=== PATIENT | male | born 1930 | race Caucasian/White ===

== ENCOUNTER 2017-03-31 20:51 | Emergency (ER) | payer MEDICARE, OTHER ==
[2017-03-31] MEDS ORDERED: Oxymetazoline 0.05% Nasal Spray 15 ML Bottle NAS ONE (21:44)
--- NOTE | 2017-03-31 22:45 | EDM.PDOC ---
ED HPI GENERAL MEDICAL PROBLEM - General Chief Complaint: ENT Problem Stated Complaint: [facility] Time Seen by Provider: 03/31/17 21:44 Source of Information: Reports: Patient, EMS, Family History Limitations: Reports: No Limitations - History of Present Illness INITIAL COMMENTS - FREE TEXT/NARRATIVE: This patient comes in by EMS due to a nosebleed. It's been going on for a couple of hours he just can't seem to stop it. He does take warfarin and his INR yesterday was 3.6 and the lady with him is not sure if the dose is been adjusted or not. He also takes aspirin. denies pain Pain Score (Numeric/FACES): 0 - Related Data Allergies Allergy/AdvReac Type Severity Reaction Status Date / Time flunisolide Allergy Cannot Verified 03/31/17 21:04 Remember lisinopril Allergy Cannot Verified 03/31/17 21:04 Remember losartan Allergy Cannot Verified 03/31/17 21:04 Remember pioglitazone Allergy Cannot Verified 03/31/17 21:04 Remember tamsulosin HCl [From Flomax] Allergy Hypotension Verified 12/06/13 10:09 valsartan Allergy Cannot Verified 03/31/17 21:04 Remember Home Meds: Home Meds Albuterol Sulfate [Proair Hfa] 2 puff INH Q4H PRN 10/14/13 [History] Bumetanide [Bumex] 2 mg PO BID 10/14/13 [History] Clotrimazole/Betamethasone Dip [Lotrisone Cream] 1 applic TOP BID 10/14/13 [ History] Docusate Sodium/Sennosides [Senokot-S] 1 each PO DAILY 10/14/13 [History] Finasteride [Proscar] 5 mg PO DAILY 10/14/13 [History] Insulin Aspart [Novolog Flexpen] 12 unit SQ QAM 10/14/13 [History] Insulin Glarg,Human.Rec.Analog [Lantus] 36 units SQ BEDTIME 10/14/13 [History] Levothyroxine Sodium [Synthroid] 150 mcg PO DAILY 10/14/13 [History] Metoprolol Tartrate 50 mg PO BID 10/14/13 [History] Nitroglycerin [Nitrostat] 0.4 mg SL ASDIRECTED PRN 10/14/13 [History] Silver Sulfadiazine [Silvadene 1% Cream] 1 applic TOP DAILY 10/14/13 [History] Simvastatin [Zocor] 20 mg PO BEDTIME 10/14/13 [History] Triamcinolone Acetonide [Triamcinolone Acetonide 0.025%] 1 applic TOP ASDIRECTED PRN 10/14/13 [History] Warfarin [Coumadin] 5 mg PO DAILY 10/14/13 [History] Aspirin [Adult Low Dose Aspirin EC] 81 mg PO DAILY 12/06/13 [History] Pentoxifylline [TRENtal] 400 mg PO TID 12/06/13 [History] Insulin Aspart [NovoLOG] 16 unit SQ CALDER[place] 03/30/14 [History] Insulin Aspart [NovoLOG] 32 unit SQ QPM 03/30/14 [History] Acetaminophen 650 mg PO Q4H PRN 03/31/14 [History] Acetaminophen/Diphenhydramine [Acetaminophen Pm Gelcap] 1 tab PO BEDTIME PRN 05/04 [History] Cholecalciferol (Vitamin D3) [Vitamin D3] 2,000 unit PO DAILY 03/31/14 [History] Fluticasone Propionate [Flovent] 1 spray ABHISHEK DAILY 03/31/14 [History] Loratadine [Allergy] 10 mg PO DAILY 03/31/14 [History] Potassium Chloride [Klor-Con M20] 20 meq PO DAILY 03/31/14 [History] guaiFENesin [Guaifenesin] 400 mg PO Q4H PRN 03/31/14 [History] ALPRAZolam [Xanax] 0.25 mg PO DAILY PRN 02/26/15 [History] Allopurinol [Zyloprim] 100 mg PO DAILY 02/26/15 [History] Ascorbic Acid 02/26/15 [History] Capsaicin 02/26/15 [History] Clotrimazole/Betamethasone 02/26/15 [History] Colchicine 02/26/15 [History] Diphenhydramine 02/26/15 [History] Ketoconazole 02/26/15 [History] Magnesium Hydroxide 02/26/15 [History] Mupirocin Cream [Bactroban Crm] 1 applic TOP BID PRN 02/26/15 [History] Perdnisone 02/26/15 [History] Psyllium 02/26/15 [History] Saw [place] Fruit [Saw [place]] 450 mg PO BID 02/26/15 [History] Cephalexin [Cephalexin] 500 mg PO Q12H 03/31/17 [History] Metoprolol Tartrate [Lopressor] 12.5 mg PO Q12HR 03/31/17 [History] Past Medical History HEENT History: Reports: Impaired Vision Cardiovascular History: Reports: High Cholesterol, Hypertension, [place], Pacemaker Respiratory History: Reports: SOB Gastrointestinal History: Reports: Chronic Constipation Genitourinary History: Reports: Urinary Incontinence Musculoskeletal History: Reports: Arthritis Neurological History: Reports: Neuropathy, Diabetic Endocrine/Metabolic History: Reports: Diabetes, Type II Dermatologic History: Reports: Other (See Below) Other Dermatologic History: dry, fragile skin - Infectious Disease History Infectious Disease History: Reports: Chicken Pox, Measles, Mumps, Rubella - Past Surgical History HEENT Surgical History: Reports: Cataract Surgery, Laser Surgery Cardiovascular Surgical History: Reports: Coronary Artery Stent Social & Family History - Tobacco Use Smoking Status *Q: Never Smoker Second Hand Smoke Exposure: No - Caffeine Use Caffeine Use: Reports: Soda - Alcohol Use Days Per Week of Alcohol Use: 0 - Recreational Drug Use Recreational Drug Use: No ED ROS ENT - Review of Systems Review Of Systems: ROS reveals no pertinent complaints other than HPI. ED EXAM, ENT - Physical Exam Exam: See Below Exam Limited By: No Limitations General Appearance: Alert, WD/WN, No Apparent Distress, Other Eye Exam: Bilateral Eye: Normal Inspection Nose: Other (He has a nose clip on and a piece of gauze in the left nostril. The gauze was removed there is a large clot with it and I observed the left side of the septum and there some anterior irritation anteriorly.) Mouth/Throat: Normal Inspection Respiratory/Chest: Lungs Clear Cardiovascular: Regular Rate, Rhythm Course - Vital Signs Last Recorded V/S: Last Vital Signs Temp 36.6 C 03/31/17 20:54 Pulse 70 03/31/17 20:54 Resp 16 03/31/17 20:54 BP 131/49 L 03/31/17 20:54 Pulse Ox 97 03/31/17 20:54 - Orders/Labs/Meds Meds: Medications Discontinued Medications Generic Name Dose Route Start Last Admin Trade Name Freq PRN Reason Stop Dose Admin Oxymetazoline HCl 1 ml 03/31/17 21:44 Afrin Original 0.05% Nasal Peculiar ABHISHEK 03/31/17 21:45 ONETIME ONE - Re-Assessments/Exams Free Text/Narrative Re-Assessment/Exam: 03/31/17 22:43 [place] gauze was removed from the left nostril along with a big clot. He was given 2 sprays of Afrin to the area of the left nasal septum. The nasal clip was replaced. I examined him afterwards remove the clip and there is no further bleeding. Departure - Departure Time of Disposition: 22:43 Disposition: Home, Self-Care 01 Condition: Fair Clinical Impression: Epistaxis - Discharge Information Referrals: John Selby MD [Primary Care Provider] - Additional Instructions: If there is more bleeding then reapply the nose clip for 15 minutes. You can use the Afrin spray again if needed but shouldn't use it more than about once or twice. You can get addicted to the stuff. It would be best not to use the fluticasone spray for a few days since that can irritate the nose. Tried putting either some Vaseline or some antibiotic ointment and the left nostril to keep it nice and moist.
== END 2017-03-31 22:58 | disposition home or self-care (01) ==
LOC: JP.ED 20:51
DX: R04.0 Epistaxis (principal); E11.40 Type 2 diabetes mellitus with diabetic neuropathy, unspecified; E78.00 Pure hypercholesterolemia, unspecified; I10 Essential (primary) hypertension; I25.2 Old myocardial infarction; Z95.0 Presence of cardiac pacemaker; Z79.4 Long term (current) use of insulin; Z79.82 Long term (current) use of aspirin; Z79.899 Other long term (current) drug therapy; Z88.8 Allergy status to other drugs, medicaments and biological substances
CPT/HCPCS: 99284; A9270; 99282

== ENCOUNTER 2017-04-20 17:20 | Emergency (ER) | payer MEDICARE, OTHER ==
--- NOTE | 2017-04-20 18:29 | EDM.PDOC ---
ED HPI GENERAL MEDICAL PROBLEM - General Chief Complaint: ENT Problem Stated Complaint: [facility] Time Seen by Provider: 04/20/17 17:30 Source of Information: Reports: Patient, EMS, Family History Limitations: Reports: No Limitations - History of Present Illness INITIAL COMMENTS - FREE TEXT/NARRATIVE: 86-year-old male with a persistent left epistaxis for the past 2 hours. Onset: Today Duration: Hour(s): (Patient has had epistaxis for the last 2 hours, left-sided) - Related Data Allergies Allergy/AdvReac Type Severity Reaction Status Date / Time flunisolide Allergy Cannot Verified 03/31/17 21:04 Remember lisinopril Allergy Cannot Verified 03/31/17 21:04 Remember losartan Allergy Cannot Verified 03/31/17 21:04 Remember pioglitazone Allergy Cannot Verified 03/31/17 21:04 Remember tamsulosin HCl [From Flomax] Allergy Hypotension Verified 12/06/13 10:09 valsartan Allergy Cannot Verified 03/31/17 21:04 Remember Home Meds: Home Meds Albuterol Sulfate [Proair Hfa] 2 puff INH Q4H PRN 10/14/13 [History] Bumetanide [Bumex] 2 mg PO BID 10/14/13 [History] Clotrimazole/Betamethasone Dip [Lotrisone Cream] 1 applic TOP BID 10/14/13 [ History] Docusate Sodium/Sennosides [Senokot-S] 1 each PO DAILY 10/14/13 [History] Finasteride [Proscar] 5 mg PO DAILY 10/14/13 [History] Insulin Aspart [Novolog Flexpen] 12 unit SQ QAM 10/14/13 [History] Insulin Glarg,Human.Rec.Analog [Lantus] 36 units SQ BEDTIME 10/14/13 [History] Levothyroxine Sodium [Synthroid] 150 mcg PO DAILY 10/14/13 [History] Metoprolol Tartrate 50 mg PO BID 10/14/13 [History] Nitroglycerin [Nitrostat] 0.4 mg SL ASDIRECTED PRN 10/14/13 [History] Silver Sulfadiazine [Silvadene 1% Cream] 1 applic TOP DAILY 10/14/13 [History] Simvastatin [Zocor] 20 mg PO BEDTIME 10/14/13 [History] Triamcinolone Acetonide [Triamcinolone Acetonide 0.025%] 1 applic TOP ASDIRECTED PRN 10/14/13 [History] Warfarin [Coumadin] 5 mg PO DAILY 10/14/13 [History] Aspirin [Adult Low Dose Aspirin EC] 81 mg PO DAILY 12/06/13 [History] Pentoxifylline [TRENtal] 400 mg PO TID 12/06/13 [History] Insulin Aspart [NovoLOG] 16 unit SQ CALDER[place] 03/30/14 [History] Insulin Aspart [NovoLOG] 32 unit SQ QPM 03/30/14 [History] Acetaminophen 650 mg PO Q4H PRN 03/31/14 [History] Acetaminophen/Diphenhydramine [Acetaminophen Pm Gelcap] 1 tab PO BEDTIME PRN 05/04 [History] Cholecalciferol (Vitamin D3) [Vitamin D3] 2,000 unit PO DAILY 03/31/14 [History] Fluticasone Propionate [Flovent] 1 spray ABHISHEK DAILY 03/31/14 [History] Loratadine [Allergy] 10 mg PO DAILY 03/31/14 [History] Potassium Chloride [Klor-Con M20] 20 meq PO DAILY 03/31/14 [History] guaiFENesin [Guaifenesin] 400 mg PO Q4H PRN 03/31/14 [History] ALPRAZolam [Xanax] 0.25 mg PO DAILY PRN 02/26/15 [History] Allopurinol [Zyloprim] 100 mg PO DAILY 02/26/15 [History] Ascorbic Acid 02/26/15 [History] Capsaicin 02/26/15 [History] Clotrimazole/Betamethasone 02/26/15 [History] Colchicine 02/26/15 [History] Diphenhydramine 02/26/15 [History] Ketoconazole 02/26/15 [History] Magnesium Hydroxide 02/26/15 [History] Mupirocin Cream [Bactroban Crm] 1 applic TOP BID PRN 02/26/15 [History] Psyllium 02/26/15 [History] Saw [place] Fruit [Saw [place]] 450 mg PO BID 02/26/15 [History] Cephalexin [Cephalexin] 500 mg PO Q12H 03/31/17 [History] Metoprolol Tartrate [Lopressor] 12.5 mg PO Q12HR 10/11/17 [History] Past Medical History HEENT History: Reports: Impaired Vision Cardiovascular History: Reports: High Cholesterol, Hypertension, [place], Pacemaker Respiratory History: Reports: SOB Gastrointestinal History: Reports: Chronic Constipation Genitourinary History: Reports: Urinary Incontinence Musculoskeletal History: Reports: Arthritis Neurological History: Reports: Neuropathy, Diabetic Endocrine/Metabolic History: Reports: Diabetes, Type II Dermatologic History: Reports: Other (See Below) Other Dermatologic History: dry, fragile skin - Infectious Disease History Infectious Disease History: Reports: Chicken Pox, Measles, Mumps, Rubella - Past Surgical History HEENT Surgical History: Reports: Cataract Surgery, Laser Surgery Cardiovascular Surgical History: Reports: Coronary Artery Stent Social & Family History - Tobacco Use Smoking Status *Q: Never Smoker Second Hand Smoke Exposure: No - Caffeine Use Caffeine Use: Reports: None - Alcohol Use Days Per Week of Alcohol Use: 0 - Recreational Drug Use Recreational Drug Use: No ED ROS ENT - Review of Systems Review Of Systems: See Below Constitutional: Denies: Fever, Chills Respiratory: Denies: Shortness of Breath GI/Abdominal: Denies: Vomiting Skin: Reports: Pallor Neurological: Denies: Headache ED EXAM, ENT - Physical Exam Exam: See Below Exam Limited By: No Limitations General Appearance: Alert, No Apparent Distress Nose: Other (Persistent left-sided epistaxis is present) Mouth/Throat: Other (A small amount of posterior pharyngeal blood is present, actively bleeding) Respiratory/Chest: No Respiratory Distress Course - Vital Signs Last Recorded V/S: Last Vital Signs Temp 96.8 F 04/20/17 17:26 Pulse 70 04/20/17 17:26 Resp 14 04/20/17 17:26 BP 154/41 H 04/20/17 17:26 Pulse Ox 96 04/20/17 17:26 - Re-Assessments/Exams Free Text/Narrative Re-Assessment/Exam: 04/21/17 12:04 All blood and clots were expelled from the left nares. A 5.5 cm rapid Rhino was placed without difficulty. Patient tolerated the procedure well, will return in 48 hours for removal or return sooner if worsening or concerns. Departure - Departure Time of Disposition: 18:45 Disposition: Home, Self-Care 01 Condition: Good Clinical Impression: Epistaxis - Discharge Information Instructions: Nosebleed, [id number] Referrals: PCP,None [Primary Care Provider] - Forms: ED Department Discharge Care Plan Goals: Remove packing in 2 days. Return sooner if problems develop.
== END 2017-04-20 18:45 | disposition home or self-care (01) ==
LOC: JP.ED 17:20
DX: R04.0 Epistaxis (principal); E11.42 Type 2 diabetes mellitus with diabetic polyneuropathy; I10 Essential (primary) hypertension; E78.00 Pure hypercholesterolemia, unspecified; Z79.4 Long term (current) use of insulin; Z79.82 Long term (current) use of aspirin; Z79.01 Long term (current) use of anticoagulants; Z79.899 Other long term (current) drug therapy; Z88.8 Allergy status to other drugs, medicaments and biological substances
CPT/HCPCS: 30901; 30903; 99283-25; 99284-25

== ENCOUNTER 2017-04-29 12:43 | Inpatient (IN) | payer MEDICARE, OTHER ==
[2017-04-29] MEDS ORDERED: Acetaminophen 325 MG Tab PO PRN (14:18)
[2017-04-29] MEDS ORDERED: ALPRAZolam 0.25 MG Tab PO PRN (14:18)
[2017-04-29] MEDS ORDERED: Sodium Chloride 0.9% 10 ML Syringe FLUSH PRN (14:21)
[2017-04-29] MEDS ORDERED: Albuterol 0.083% 2.5 MG/3 ML Neb Soln NEB PRN (14:21)
[2017-04-29] MEDS ORDERED: Ondansetron 4 MG Tab.DIS PO PRN (14:21)
--- NOTE | 2017-04-29 14:35 | PCM.HP ---
H&P History of Present Illness - General Date of Service: 04/29/17 Admit Problem/Dx: Admission Diagnosis/Problem Admission Diagnosis/Problem Anemia Source of Information: Patient, Family, Provider History Limitations: Reports: No Limitations - History of Present Illness Initial Comments - Free Text/Narative: Donnie presents as a direct admission from the nephrology clinic where he presented for routine follow-up. His biggest concern today is that he can't catch his wind. He reports 3-4 weeks of slowly progressive shortness of breath and dyspnea on exertion. They have been more notable especially over the past week. No reports of cough or chest pain. He is become slowly more fatigued than usual. Appetite has been stable. No reports of orthopnea. Lower extremity edema has been stable. No reports of fevers. He has not noticed any blood in his stool and has not had any melena. No hematemesis or obvious source of blood loss. No easy bruising or bleeding. Workup in the nephrology clinic revealed a hemoglobin of 7.2 which is down from nearly 11 six months ago. - Related Data Allergies/Adverse Reactions: Allergies Allergy/AdvReac Type Severity Reaction Status Date / Time flunisolide Allergy Cannot Verified 03/31/17 21:04 Remember lisinopril Allergy Cannot Verified 03/31/17 21:04 Remember losartan Allergy Cannot Verified 03/31/17 21:04 Remember pioglitazone Allergy Cannot Verified 03/31/17 21:04 Remember tamsulosin HCl [From Flomax] Allergy Hypotension Verified 12/06/13 10:09 valsartan Allergy Cannot Verified 03/31/17 21:04 Remember Home Medications: Home Meds Albuterol Sulfate [Proair Hfa] 2 puff INH Q4H PRN 10/14/13 [History] Bumetanide [Bumex] 2 mg PO DAILY 10/14/13 [History] Clotrimazole/Betamethasone Dip [Lotrisone Cream] 1 applic TOP BID 10/14/13 [ History] Finasteride [Proscar] 5 mg PO DAILY 10/14/13 [History] Insulin Aspart [Novolog Flexpen] 12 unit SQ QAM 10/14/13 [History] Insulin Glarg,Human.Rec.Analog [Lantus] 36 units SQ BEDTIME 10/14/13 [History] Levothyroxine Sodium [Synthroid] 150 mcg PO DAILY 10/14/13 [History] Nitroglycerin [Nitrostat] 0.4 mg SL ASDIRECTED PRN 10/14/13 [History] Simvastatin [Zocor] 20 mg PO BEDTIME 10/14/13 [History] Triamcinolone Acetonide [Triamcinolone Acetonide 0.025%] 1 applic TOP ASDIRECTED PRN 10/14/13 [History] Warfarin [Coumadin] 5 mg PO ASDIRECTED 10/14/13 [History] Aspirin [Adult Low Dose Aspirin EC] 81 mg PO DAILY 12/06/13 [History] Insulin Aspart [NovoLOG] 16 unit SQ CALDERON 03/30/14 [History] Insulin Aspart [NovoLOG] 32 unit SQ QPM 03/30/14 [History] Acetaminophen 650 mg PO Q4H PRN 03/31/14 [History] Fluticasone Propionate [Flovent] 1 puff ABHISHEK DAILY 03/31/14 [History] Loratadine [Allergy] 10 mg PO DAILY 03/31/14 [History] Potassium Chloride [Klor-Con M20] 20 meq PO DAILY 03/31/14 [History] guaiFENesin [Guaifenesin] 400 mg PO Q4H PRN 03/31/14 [History] ALPRAZolam [Xanax] 0.25 mg PO DAILY PRN 02/26/15 [History] Allopurinol [Zyloprim] 100 mg PO DAILY 02/26/15 [History] Ascorbic Acid 500 mg PO DAILY 02/26/15 [History] Mupirocin Cream [Bactroban Crm] 1 applic TOP BID PRN 02/26/15 [History] [place] Fruit [Saw [place]] 450 mg PO BID 02/26/15 [History] Metoprolol Tartrate [Lopressor] 12.5 mg PO BID 03/31/17 [History] Acetaminophen/Diphenhydramine [Tylenol Pm Ex-Strength Caplet] 1 - 2 each PO BEDTIME PRN 04/29/17 [History] Cyanocobalamin (Vitamin B-12) [B-12] 1,000 mcg PO DAILY 04/29/17 [History] Docusate Calcium [Surfak] 240 mg PO DAILY 04/29/17 [History] Fluocinonide [Lidex 0.05% Crm] 1 g TOP BID 04/29/17 [History] Folic Acid 1 mg PO DAILY 04/29/17 [History] Hypromellose [Genteal Severe] 1 drop EYERT DAILY 04/29/17 [History] Ketoconazole [Nizoral 2% Crm] 1 g TOP BID PRN 04/29/17 [History] Lactulose 20 gm PO DAILY 04/29/17 [History] Magnesium Hydroxide [Milk of Magnesia] 30 ml PO DAILY PRN 04/29/17 [History] Triamcinolone Acetonide [Nasacort] 2 sprays NS DAILY 04/29/17 [History] Warfarin [Coumadin] 2.5 mg PO ASDIRECTED 04/29/17 [History] Past Medical History HEENT History: Reports: Impaired Vision Cardiovascular History: Reports: Afib, High Cholesterol, Hypertension, NM, Pacemaker Respiratory History: Reports: SOB Gastrointestinal History: Reports: Chronic Constipation Genitourinary History: Reports: Urinary Incontinence Musculoskeletal History: Reports: Arthritis Neurological History: Reports: Neuropathy, Diabetic Psychiatric History: Reports: None Endocrine/Metabolic History: Reports: Diabetes, Type II, Obesity/BMI 30+ Hematologic History: Reports: Anemia Immunologic History: Reports: None Oncologic (Cancer) History: Reports: None Dermatologic History: Reports: Other (See Below) Other Dermatologic History: dry, fragile skin, SKIN ON BUTTOCKS/ANUPAMA ANAL AREA REDDENED AND EXCORIATED ON ADMISSION - Infectious Disease History Infectious Disease History: Reports: Chicken Pox, Measles, Mumps, Rubella - Past Surgical History HEENT Surgical History: Reports: Cataract Surgery, Laser Surgery Cardiovascular Surgical History: Reports: Coronary Artery Stent, Pacer GI Surgical History: Reports: None Neurological Surgical History: Reports: None Social & Family History - Family History Cardiac: Denies: CAD - Tobacco Use Smoking Status *Q: Former Smoker Used Tobacco, but Quit: Yes Month Tobacco Last Used: Second Hand Smoke Exposure: No - Caffeine Use Caffeine Use: Reports: Coffee - Alcohol Use Days Per Week of Alcohol Use: 0 - Recreational Drug Use Recreational Drug Use: No H&P Review of Systems - Review of Systems: Review Of Systems: See Below Free Text/Narrative: A complete 12 point review of systems was obtained. Pertinent positives and negatives are noted in the history of present illness. All other systems were reviewed and were negative except as noted. Exam - Exam Exam: See Below - Vital Signs Vital Signs: Last Vital Signs Temp 36.3 C 04/29/17 13:37 Pulse 70 04/29/17 13:37 Resp 18 04/29/17 13:37 BP 144/40 H 04/29/17 13:37 Pulse Ox 100 04/29/17 13:37 Weight: 140.358 kg - Exam Quality Assessment: No: Supplemental Oxygen General: Alert, Oriented, Cooperative. No: Mild Distress HEENT: Conjunctiva Clear, Mucosa Moist & [place]. No: Scleral Icterus Neck: Supple, Trachea Midline. No: Lymphadenopathy Lungs: Clear to Auscultation, Normal Respiratory Effort Cardiovascular: Regular Rate, Regular Rhythm, Systolic Murmur GI/Abdominal Exam: Normal Bowel Sounds, Soft, Non-Tender, No Distention Extremities: Pedal Edema (pitting edema to the knee bilaterally, right greater than left). No: Joint Swelling, Increased Warmth Skin: Warm, Dry Neurological: Normal Speech Neuro Extensive - Mental Status: Alert, Oriented x3, Nl Response to Commands Neuro Extensive - Motor, Sensory, Reflexes: CN II-XII Intact. No: Dysarthria, Abnormal Motor, Tremor Psychiatric: Alert, Normal Affect *Q Meaningful Use (ADM) - VTE *Q VTE Criteria *Q: VTE Mechanical Contraindications *Q: Bilateral Lower Edema VTE Pharmacological Contraindications *Q: Risk of Bleeding - VTE Risk Assess *Q Each Risk Factor Represents 1 Point: Swollen Legs, Current, Obesity ( BMI > 25 kg/m2), Congestive heart failure (CHF), Abnormal Pulmonary Function (COPD) Total Score 1 Point Risk Factors: 4 Each Risk Factor Represents 2 Points: None Total Score 2 Point Risk Factors: 0 Each Risk Factor Represents 3 Points: Age 75 Years or Greater Total Score 3 Point Risk Factors: 3 Each Risk Factor Represents 5 Points: None Total Score 5 Point Risk Factors: 0 Venous Thromboembolism Risk Factor Score *Q: 7 - Stroke *Q Stroke Criteria *Q: - AMI *Q AMI Criteria *Q: - Problem List (1) Normocytic anemia SNOMED Code(s): 288564531 ICD Code: D64.9 - ANEMIA, UNSPECIFIED Status: Acute Current Visit: Yes (2) Chronic kidney disease, stage 3 SNOMED Code(s): 492983869 ICD Code: N18.3 - CHRONIC KIDNEY DISEASE, STAGE 3 (MODERATE) Status: Chronic Current Visit: Yes (3) Venous stasis dermatitis of both lower extremities SNOMED Code(s): 69929482 ICD Code: I87.2 - VENOUS INSUFFICIENCY (CHRONIC) (PERIPHERAL) Status: Chronic Current Visit: Yes (4) Hypothyroidism (acquired) SNOMED Code(s): 016866615 ICD Code: E03.9 - HYPOTHYROIDISM, UNSPECIFIED Status: Chronic Current Visit: Yes (5) Morbid obesity with BMI of 40.0-44.9, adult SNOMED Code(s): 283609055 ICD Code: E66.01 - MORBID (SEVERE) OBESITY DUE TO EXCESS CALORIES; Z68.41 - BODY MASS INDEX (BMI) 40.0-44.9, ADULT Status: Chronic Current Visit: No (6) Chronic atrial flutter SNOMED Code(s): 307778055 ICD Code: I48.92 - UNSPECIFIED ATRIAL FLUTTER Status: Chronic Current Visit: Yes (7) Insulin dependent diabetes mellitus SNOMED Code(s): 50160902 ICD Code: E11.9 - TYPE 2 DIABETES MELLITUS WITHOUT COMPLICATIONS; Z79.4 - USP (CURRENT) USE OF INSULIN Status: Chronic Current Visit: Yes Problem List Initiated/Reviewed/Updated: Yes Orders Last 24hrs: Active Orders 24 hr Category Date Time Status Patient Status [ADT] Routine ADT 04/29/17 14:21 Ordered Bedrest Bedside Commode [RC] ASDIRECTED Care 04/29/17 14:21 Ordered Intake and Output [RC] QSHIFT Care 04/29/17 14:24 Ordered Notify Provider Consults [RC] ASDIRECTED Care 04/29/17 14:26 Ordered Notify Provider Vital Signs [RC] ASDIRECTED Care 04/29/17 14:24 Ordered Oxygen Therapy [RC] PRN Care 04/29/17 14:21 Ordered RT Aerosol Therapy [RC] ASDIRECTED Care 04/29/17 14:26 Ordered Up With Assistance [RC] ASDIRECTED Care 04/29/17 14:21 Ordered VTE/DVT Education [RC] Per Unit Routine Care 04/29/17 14:21 Ordered Vital Signs [RC] Q4H Care 04/29/17 14:21 Ordered Consult to Physician [CONS] Routine Cons 04/29/17 14:21 Ordered Clear Liquid Diet [DIET] Diet 04/29/17 Dinner Ordered NPO After Midnight [Nothing per Oral After Midnight Diet 04/29/17 Dinner Ordered Diet] [DIET] BASIC METABOLIC PANEL,BMP [CHEM] AM Lab 04/30/17 05:11 Ordered CBC W/O DIFF,HEMOGRAM [HEME] AM Lab 04/30/17 05:11 Ordered FERRITIN [CHEM] Routine Lab 04/29/17 14:21 Ordered INR,PT,PROTHROMBIN TIME [COAG] AM Lab 04/30/17 05:11 Ordered IRON/TIBC [CHEM] Routine Lab 04/29/17 14:21 Ordered LACTATE DEHYDROGENASE,LDH [CHEM] Routine Lab 04/29/17 14:21 Ordered RED BLOOD CELLS LP [BBK] Routine Lab 04/29/17 14:21 Ordered TYPE AND SCREEN [BBK] Routine Lab 04/29/17 14:21 Ordered VITAMIN B12 [CHEM] Routine Lab 04/29/17 14:29 Ordered ALPRAZolam [Xanax] Med 04/29/17 14:18 Ordered 0.25 mg PO DAILY PRN Acetaminophen [Tylenol] Med 04/29/17 14:18 Ordered 650 mg PO Q4H PRN Albuterol [Proventil Neb Soln] Med 04/29/17 14:21 Ordered 2.5 mg NEB Q4H PRN Allopurinol [Zyloprim] Med 04/30/17 09:00 Ordered 100 mg PO DAILY Aspirin [Halfprin] Med 04/30/17 09:00 Ordered 81 mg PO DAILY Bumetanide [Bumex] Med 04/30/17 09:00 Ordered 2 mg PO DAILY Cyanocobalamin (Vitamin B12) [Vitamin B12] Med 04/30/17 09:00 Ordered 1,000 mcg PO DAILY Finasteride [Proscar] Med 04/30/17 09:00 Ordered 5 mg PO DAILY Folic Acid Med 04/30/17 09:00 Ordered 1 mg PO DAILY Hypromellose [GenTeal Severe Dry Eye Relief] Med 04/30/17 09:00 Ordered 1 drop EYERT DAILY Levothyroxine Sodium [Synthroid] Med 04/30/17 09:00 Ordered 150 mcg PO DAILY Metoprolol Tartrate [Lopressor] Med 04/29/17 21:00 Ordered 12.5 mg PO BID Ondansetron [Zofran ODT] Med 04/29/17 14:21 Ordered 4 mg PO Q6H PRN Polyethylene Glycol 3350 [MiraLAX] Med 04/29/17 14:29 Once 238 gm PO ONETIME ONE Potassium Chloride [Klor-Con M20] Med 04/30/17 09:00 Ordered 20 meq PO DAILY Saw [place] Fruit [Saw [place]] Med 04/29/17 21:00 Ordered 450 mg PO BID Simvastatin [Zocor] Med 04/29/17 21:00 Ordered 20 mg PO BEDTIME Sodium Chloride 0.9% [Saline Flush] Med 04/29/17 14:21 Ordered 10 ml FLUSH ASDIRECTED PRN Triamcinolone Acetonide [Nasacort] Med 04/30/17 09:00 Ordered 2 sprays NS DAILY Antiembolic Hose [OM.PC] Per Unit Routine Oth 04/29/17 14:25 Ordered Saline Lock Insert [OM.PC] Routine Oth 04/29/17 14:21 Ordered Transfuse Red Blood Cells [COMM] Routine Oth 04/29/17 14:27 Ordered Resuscitation Status Routine Resus Stat 04/29/17 14:21 Ordered Assessment/Plan Comment:: ASSESSMENT AND PLAN - Symptomatic normocytic anemia - most likely differential includes chronic blood loss versus underproduction versus less likely destruction. No symptoms or signs to suggest blood loss through the GI tract at this time. No symptoms or signs to suggest acute hematologic issue. Hemoglobin trending down. Patient is interested in additional workup. He is on chronic anticoagulation for warfarin and is at a high risk for stroke given comorbidities. He would benefit from systemic anticoagulation as long as there are no impressive contraindications. -Type and cross 2 units and transfuse when available -Iron studies, ferritin and LDH -Consult Dr. Orlando for EGD and colonoscopy in the morning -repeat hemoglobin in the morning Stage III chronic kidney disease - Kidney function has been stable to improving recently. Possibly some contribution to low hemoglobin though kidney function has been slowly improving. Insulin-dependent diabetes mellitus - Control has been acceptable recently. Usual medications will be reduced with colonoscopy prep plan for tonight. Chronic atrial flutter - chronically anticoagulated as above. Currently rate controlled. -Continue beta aliza -Hold anticoagulation as above Maintenance issues - - DVT prophylaxis - mechanical - GI prophylaxis - PPI - Nutrition - clear liquids tonight - Maria catheter - not indicated CODE STATUS - DNR/DNI Admission justification - This patient will be admitted for inpatient services and is medically appropriate meeting medical necessity for inpatient admission as outlined in my documentation. I reasonably expect the patient will require inpatient services that span a period time over 2 midnights. I reasonably expect this patient to be discharged or transferred within 96 hours after admission to the [facility]. Disposition - anticipate discharge home after the hospital stay Primary care physician - Dr. Bal Altman M.D.
[2017-04-29] MEDS ORDERED: Polyethylene Glycol 3350 Powder 238 GM Bot PO ONE (15:00)
[2017-04-29] MEDS ORDERED: SAW PALMETTO FRUIT 450 MG PO SCH (21:00)
[2017-04-29] MEDS: Insulin Aspart 100 Units/ML 3 ML Pen SUBCUT SCH (21:21)
[2017-04-29] MEDS: Simvastatin 20 MG Tab PO SCH (21:26)
[2017-04-29] MEDS: Metoprolol Tartrate 25 MG Tab PO SCH (21:26)
[2017-04-29] MEDS: SAW PALMETTO (PTOM) PO SCH (21:35)
[2017-04-30] MEDS ORDERED: Bupivacaine 0.5%/EPINEPHrine 1:200,000 50 ML MDV ONE (07:03)
[2017-04-30] MEDS ORDERED: Propofol 200 MG/20 ML SDV ONE ×2 (07:05→08:06)
[2017-04-30] MEDS ORDERED: Insulin Aspart 100 Units/ML 3 ML Pen SUBCUT SCH (08:00)
[2017-04-30] MEDS ORDERED: Lactated Ringers 1,000 ML ONE (08:06)
[2017-04-30] MEDS ORDERED: TRIAMCINOLONE ACETONIDE NS SCH (09:00)
[2017-04-30] MEDS ORDERED: Non-Formulary Medication 1 Each (Bumetanide [Bumex] 2 MG) PO SCH (09:00)
[2017-04-30] MEDS ORDERED: Fluticasone Propionate Nasal Spray 16 GM Bottle NASBOTH SCH (09:00)
[2017-04-30] MEDS ORDERED: Non-Formulary Medication 1 Each (Levothyroxine Sodium [Synthroid] 150 MCG) PO SCH (09:00)
[2017-04-30] MEDS ORDERED: HYPROMELLOSE EYERT SCH (09:00)
--- NOTE | 2017-04-30 09:34 | OR ---
DATE OF PROCEDURE: 04/30/2017 PROCEDURE: 1. Esophagogastroduodenoscopy. 2. Colonoscopy. FINDINGS: 1. Gastritis, moderate. 2. Significant diverticulosis. 3. Inadequate colon prep. 4. No evidence of lower GI bleeding. COMPLICATIONS: None. CLINICAL DATA MANAGER: None. ANESTHESIA: MAC. PREOPERATIVE DIAGNOSIS: Anemia. POSTOPERATIVE DIAGNOSIS: Anemia. RISKS: Risks, benefits, alternatives, limitations including, but not limited to infection, bleeding, and perforation were explained to the patient, who wished to proceed. PROCEDURE IN DETAIL: The patient was placed in the left lateral decubitus position. The EGD scope was introduced, advanced atraumatically to the second part of the duodenum. The scope was brought back into the stomach. The patient had moderate gastritis, which was still active. On retroflexion, there was a small hiatal hernia. No evidence of ulceration noted. The esophagus was normal. Digital rectal exam was performed next. The scope was then advanced to the level of the transverse colon. The patient had severe and significant diverticulosis. There was no evidence of old or new blood. The patient's prep was unacceptable. At the level of the proximal transverse colon, the procedure was terminated. This was terminated due to the risk-benefit ratio, as advancing the scope blindly with a poor colon prep might lead to perforation, there was no blood noted, and diverticulosis probably would be the main GI etiology. The patient tolerated the procedures well. Barrett Orlando MD /[id number]
[2017-04-30] MEDS: Folic Acid 1 MG Tab PO SCH (09:43)
[2017-04-30] MEDS: Potassium Chloride 20 MEQ Tab.ER PO SCH (09:43)
[2017-04-30] MEDS: Bumetanide 1 MG Tab PO SCH (09:43)
[2017-04-30] MEDS: Aspirin 81 MG Tab.EC PO SCH (09:43)
[2017-04-30] MEDS: SAW PALMETTO (PTOM) PO SCH ×2 (09:44→21:50)
[2017-04-30] MEDS: Finasteride 5 MG Tab PO SCH (09:44)
[2017-04-30] MEDS: Allopurinol 100 MG Tab PO SCH (09:44)
[2017-04-30] MEDS: Metoprolol Tartrate 25 MG Tab PO SCH ×2 (09:44→21:48)
[2017-04-30] MEDS: Cyanocobalamin (Vitamin B12) 1,000 MCG Tab PO SCH (09:44)
[2017-04-30] MEDS: Hypromellose 0.4% Ophth Soln 15 ML Bottle EYERT SCH (09:45)
[2017-04-30] MEDS: Fluticasone Propionate Nasal Spray 16 GM Bottle NASBOTH SCH ×2 (09:46→18:21)
[2017-04-30] MEDS: Insulin Aspart 100 Units/ML 3 ML Pen SUBCUT SCH ×5 (09:50→17:52)
--- NOTE | 2017-04-30 11:01 | PCM.PN ---
- General Info Date of Service: 04/30/17 Functional Status: Reports: Pain Controlled, Tolerating Diet - Review of Systems Pulmonary: Denies: Shortness of Breath Gastrointestinal: Denies: Hematochezia Systems Review Comment:: no acute events overnight. Hemoglobin stable compared to yesterday. Unfortunately blood was not available because of an ABO discrepancy. No complaints of dyspnea. Vital signs have been stable. EGD this morning showed mild to moderate gastritis with no bleeding. Colonoscopy prep was not great and colonoscopy was incomplete did reveal a fair amount of diverticulosis. No evidence for new or old blood in the colon. - Patient Data Vitals - Most Recent: Last Vital Signs Temp 36.1 C 04/30/17 09:40 Pulse 70 04/30/17 09:44 Resp 18 04/30/17 09:30 BP 130/38 L 04/30/17 09:44 Pulse Ox 96 04/30/17 09:30 Weight - Most Recent: 140.358 kg I&O - Last 24 Hours: Intake & Output 04/29/17 04/30/17 04/30/17 22:59 06:59 14:59 Intake Total 2400 120 Balance 2400 120 Lab Results Last 24 Hours: Laboratory Results - last 24 hr 04/29/17 04/29/17 04/29/17 Range/Units 14:46 14:46 14:46 WBC (4.5-11.0) K/uL RBC (4.30-5.90) M/uL Hgb (12.0-15.0) g/dL Hct (40.0-54.0) % MCV (80-98) fL MCH (27-31) pg MCHC (32-36) % Plt Count (150-400) K/uL PT (9.5-12.0) sec INR (0.80-1.20) Sodium (140-148) mmol/L Potassium (3.6-5.2) mmol/L Chloride (100-108) mmol/L Carbon Dioxide (21-32) mmol/L Anion Gap (5.0-14.0) mmol/L BUN (7-18) mg/dL Creatinine (0.8-1.3) mg/dL Est Cr Clr Drug Dosing mL/min Estimated GFR (MDRD) (>60) Glucose (74-106) mg/dL Calcium (8.5-10.1) mg/dL Iron 53 L (65-175) ug/dL TIBC 212 L (250-450) ug/dl % Saturation 25 (20-55) % Ferritin 372 (8-388) ng/ml Lactate Dehydrogenase 157 (85-227) U/L Vitamin B12 (193-986) pg/ml Gel Antibody Screen Negative A* Crossmatch See Detail 04/29/17 04/30/17 04/30/17 Range/Units 14:46 05:35 05:35 WBC 5.3 (4.5-11.0) K/uL RBC 2.45 L (4.30-5.90) M/uL Hgb 6.8 L* D (12.0-15.0) g/dL Hct 23.0 L (40.0-54.0) % MCV 94 (80-98) fL MCH 28 (27-31) pg MCHC 30 L (32-36) % Plt Count 119 L (150-400) K/uL PT 23.5 H (9.5-12.0) sec INR 2.13 H (0.80-1.20) Sodium (140-148) mmol/L Potassium (3.6-5.2) mmol/L Chloride (100-108) mmol/L Carbon Dioxide (21-32) mmol/L Anion Gap (5.0-14.0) mmol/L BUN (7-18) mg/dL Creatinine (0.8-1.3) mg/dL Est Cr Clr Drug Dosing mL/min Estimated GFR (MDRD) (>60) Glucose (74-106) mg/dL Calcium (8.5-10.1) mg/dL Iron (65-175) ug/dL TIBC (250-450) ug/dl % Saturation (20-55) % Ferritin (8-388) ng/ml Lactate Dehydrogenase (85-227) U/L Vitamin B12 1321 H (193-986) pg/ml Gel Antibody Screen Crossmatch 04/30/17 Range/Units 05:35 WBC (4.5-11.0) K/uL RBC (4.30-5.90) M/uL Hgb (12.0-15.0) g/dL Hct (40.0-54.0) % MCV (80-98) fL MCH (27-31) pg MCHC (32-36) % Plt Count (150-400) K/uL PT (9.5-12.0) sec INR (0.80-1.20) Sodium 141 (140-148) mmol/L Potassium 4.0 (3.6-5.2) mmol/L Chloride 103 (100-108) mmol/L Carbon Dioxide 33 H (21-32) mmol/L Anion Gap 9.0 (5.0-14.0) mmol/L BUN 22 H (7-18) mg/dL Creatinine 1.3 (0.8-1.3) mg/dL Est Cr Clr Drug Dosing 45.60 mL/min Estimated GFR (MDRD) 52 L (>60) Glucose 170 H (74-106) mg/dL Calcium 8.7 (8.5-10.1) mg/dL Iron (65-175) ug/dL TIBC (250-450) ug/dl % Saturation (20-55) % Ferritin (8-388) ng/ml Lactate Dehydrogenase (85-227) U/L Vitamin B12 (193-986) pg/ml Gel Antibody Screen Crossmatch Med Orders - Current: Current Medications Acetaminophen (Tylenol) 650 mg PO Q4H PRN PRN Reason: Pain Albuterol (Proventil Neb Soln) 2.5 mg NEB Q4H PRN PRN Reason: Shortness Of Breath/wheezing Allopurinol (Zyloprim) 100 mg PO DAILY [facility] Last Admin: 04/30/17 09:44 Dose: 100 mg Alprazolam (Xanax) 0.25 mg PO DAILY PRN PRN Reason: Anxiety Artificial Tears (Natural Balance Tears) 0 ml EYERT DAILY [facility] Last Admin: 04/30/17 09:45 Dose: Not Given Aspirin (Halfprin) 81 mg PO DAILY [facility] Last Admin: 04/30/17 09:43 Dose: 81 mg Bumetanide (Bumex) 2 mg PO DAILY [facility] Last Admin: 04/30/17 09:43 Dose: 2 mg Cyanocobalamin (Vitamin B12) 1,000 mcg PO DAILY [facility] Last Admin: 04/30/17 09:44 Dose: 1,000 mcg Finasteride (Proscar) 5 mg PO DAILY [facility] Last Admin: 04/30/17 09:44 Dose: 5 mg Fluticasone Propionate (Flonase) 0 gm NASBOTH DAILY [facility] Last Admin: 04/30/17 09:46 Dose: Not Given Folic Acid (Folic Acid) 1 mg PO DAILY [facility] Last Admin: 04/30/17 09:43 Dose: 1 mg Insulin Aspart (Novolog) 0 unit SUBCUT ASDIRECTED [facility] PRN Reason: Protocol Last Admin: 04/30/17 09:50 Dose: 4 units Insulin Aspart (Novolog) 8 unit SUBCUT TIDMEALS [facility] Last Admin: 04/30/17 09:50 Dose: 8 units Insulin Detemir (Levemir) 20 unit SUBCUT BEDTIME [facility] Levothyroxine Sodium 100 mcg/ (Levothyroxine Sodium 50 mcg) 150 mcg PO ACBREAKFAST [facility] Last Admin: 04/30/17 09:43 Dose: 150 mcg Metoprolol Tartrate (Lopressor) 12.5 mg PO BID [facility] Last Admin: 04/30/17 09:44 Dose: 12.5 mg Ondansetron HCl (Zofran Odt) 4 mg PO Q6H PRN PRN Reason: Nausea able to take PO Saw [place] (Ptom) 0 each PO BID [facility] Last Admin: 04/30/17 09:44 Dose: Not Given Potassium Chloride (Klor-Con M20) 20 meq PO DAILY [facility] Last Admin: 04/30/17 09:43 Dose: 20 meq Simvastatin (Zocor) 20 mg PO BEDTIME [facility] Last Admin: 04/29/17 21:26 Dose: 20 mg Sodium Chloride (Saline Flush) 10 ml FLUSH ASDIRECTED PRN PRN Reason: Keep Vein Open Discontinued Medications Bupivacaine HCl/Epinephrine Bitart (Marcaine 0.5%/Epinephrine 1:200,000) Confirm Administered Dose 50 ml .ROUTE .STK-MED ONE Stop: 04/30/17 07:04 Lactated Ringer's (Ringers, Lactated) Confirm Administered Dose 1,000 mls @ as directed .ROUTE .STK-MED ONE Stop: 04/30/17 08:07 Insulin Detemir (Levemir) 20 unit SUBCUT BEDTIME [facility] Last Admin: 04/29/17 21:24 Dose: 20 units Polyethylene Glycol (Miralax) 238 gm PO ONETIME ONE Stop: 04/29/17 15:01 Last Admin: 04/29/17 16:40 Dose: 238 gm Propofol (Diprivan 20 Ml) Confirm Administered Dose 200 mg .ROUTE .STK-MED ONE Stop: 04/30/17 07:06 Propofol (Diprivan 20 Ml) Confirm Administered Dose 200 mg .ROUTE .STK-MED ONE Stop: 04/30/17 08:07 - Exam Quality Assessment: No: Supplemental Oxygen General: Alert, Oriented, Cooperative, No Acute Distress Lungs: Normal Respiratory Effort GI/Abdominal Exam: No Distention Skin: Warm, Dry Psy/Mental Status: Alert, Normal Affect - Problem List & Annotations (1) Normocytic anemia SNOMED Code(s): 856359065 Code(s): D64.9 - ANEMIA, UNSPECIFIED Status: Acute Current Visit: Yes (2) Chronic kidney disease, stage 3 SNOMED Code(s): 085203104 Code(s): N18.3 - CHRONIC KIDNEY DISEASE, STAGE 3 (MODERATE) Status: Chronic Current Visit: Yes (3) Venous stasis dermatitis of both lower extremities SNOMED Code(s): 27424841 Code(s): I87.2 - VENOUS INSUFFICIENCY (CHRONIC) (PERIPHERAL) Status: Chronic Current Visit: Yes (4) Hypothyroidism (acquired) SNOMED Code(s): 997915548 Code(s): E03.9 - HYPOTHYROIDISM, UNSPECIFIED Status: Chronic Current Visit: Yes (5) Morbid obesity with BMI of 40.0-44.9, adult SNOMED Code(s): 013314043 Code(s): E66.01 - MORBID (SEVERE) OBESITY DUE TO EXCESS CALORIES; Z68.41 - BODY MASS INDEX (BMI) 40.0-44.9, ADULT Status: Chronic Current Visit: No (6) Chronic atrial flutter SNOMED Code(s): 552271143 Code(s): I48.92 - UNSPECIFIED ATRIAL FLUTTER Status: Chronic Current Visit: Yes (7) Insulin dependent diabetes mellitus SNOMED Code(s): 53259619 Code(s): E11.9 - TYPE 2 DIABETES MELLITUS WITHOUT COMPLICATIONS; Z79.4 - [facility] (CURRENT) USE OF INSULIN Status: Chronic Current Visit: Yes - Problem List Review Problem List Initiated/Reviewed/Updated: Yes - My Orders Last 24 Hours: My Active Orders 04/29/17 14:18 ALPRAZolam [Xanax] 0.25 mg PO DAILY PRN Acetaminophen [Tylenol] 650 mg PO Q4H PRN 04/29/17 14:21 Patient Status [ADT] Routine Bedrest Bedside Commode [RC] ASDIRECTED Oxygen Therapy [RC] PRN Up With Assistance [RC] ASDIRECTED Vital Signs [RC] Q4H Consult to Physician [CONS] Routine Albuterol [Proventil Neb Soln] 2.5 mg NEB Q4H PRN Ondansetron [Zofran ODT] 4 mg PO Q6H PRN Sodium Chloride 0.9% [Saline Flush] 10 ml FLUSH ASDIRECTED PRN Saline Lock Insert [OM.PC] Routine Resuscitation Status Routine 04/29/17 14:24 Intake and Output [RC] QSHIFT Notify Provider Vital Signs [RC] ASDIRECTED 04/29/17 14:25 Antiembolic Hose [OM.PC] Per Unit Routine 04/29/17 14:26 Notify Provider Consults [RC] ASDIRECTED RT Aerosol Therapy [RC] ASDIRECTED 04/29/17 14:27 Transfuse Red Blood Cells [COMM] Routine 04/29/17 14:46 PATIENT RETYPE [BBK] Routine RED BLOOD CELLS LP [BBK] Routine TYPE AND SCREEN [BBK] Routine 04/29/17 18:13 Communication Order [RC] PRN Communication Order [RC] PRN Diabetes Education [RC] Click to Edit Notify Provider [RC] PRN 04/29/17 18:15 Insulin Aspart [NovoLOG] See Protocol SUBCUT ASDIRECTED 04/29/17 21:00 Metoprolol Tartrate [Lopressor] 12.5 mg PO BID Patient's Own Medication [Ptom] 0 each PO BID Simvastatin [Zocor] 20 mg PO BEDTIME 04/30/17 07:30 Levothyroxine [Synthroid] 150 mcg PO ACBREAKFAST 04/30/17 08:00 Insulin Aspart [NovoLOG] 8 unit SUBCUT TIDMEALS 04/30/17 09:00 Allopurinol [Zyloprim] 100 mg PO DAILY Aspirin [Halfprin] 81 mg PO DAILY Bumetanide [Bumex] 2 mg PO DAILY Cyanocobalamin (Vitamin B12) [Vitamin B12] 1,000 mcg PO DAILY Finasteride [Proscar] 5 mg PO DAILY Fluticasone Propionate [Flonase] 0 gm NASBOTH DAILY Folic Acid 1 mg PO DAILY Hypromellose [Natural Balance Tears] 0 ml EYERT DAILY Potassium Chloride [Klor-Con M20] 20 meq PO DAILY 04/30/17 11:30 GLUCOSE POC LAB TO COLLECT [POC] QIDACANDBED 04/30/17 12:00 Insulin Aspart [NovoLOG] 12 unit SUBCUT TIDMEALS 04/30/17 16:30 GLUCOSE POC LAB TO COLLECT [POC] QIDACANDBED 04/30/17 21:00 GLUCOSE POC LAB TO COLLECT [POC] QIDACANDBED Docusate Sodium/Sennosides [Senna Plus] 1 tab PO BID Insulin Detemir [Levemir] 20 unit SUBCUT BEDTIME Insulin Detemir [Levemir] 36 unit SUBCUT BEDTIME 04/30/17 Lunch Consistent Carbohydrate Diet [DIET] 05/01/17 05:00 HGB [HEMOGLOBIN] [HEME] Timed 05/01/17 07:30 GLUCOSE POC LAB TO COLLECT [POC] QIDACANDBED 05/01/17 11:30 GLUCOSE POC LAB TO COLLECT [POC] QIDACANDBED 05/01/17 16:30 GLUCOSE POC LAB TO COLLECT [POC] QIDACANDBED 05/01/17 21:00 GLUCOSE POC LAB TO COLLECT [POC] QIDACANDBED 05/02/17 07:30 GLUCOSE POC LAB TO COLLECT [POC] QIDACANDBED 05/02/17 11:30 GLUCOSE POC LAB TO COLLECT [POC] QIDACANDBED - Plan Plan:: ASSESSMENT AND PLAN - Symptomatic normocytic anemia - most likely secondary to chronic GI blood loss. Patient is on long-term warfarin and the risk of the medication versus the risk of not being on and I think remains in favor of staying on the medication as discussed below. No obvious source of bleeding but diverticular source most likely.no evidence for hemolysis. Difficulty obtaining blood because of ABO discrepancy. -transfuse blood when available -repeat hemoglobin after transfusion Stage III chronic kidney disease - Kidney function has been stable to improving recently. Possibly some contribution to low hemoglobin though kidney function has been slowly improving. Insulin-dependent diabetes mellitus - Control has been acceptable recently. Usual medications will be continued. Chronic atrial flutter - chronically anticoagulated as above. Currently rate controlled. CHADSS-VASC score fairly high and the plan is to continue warfarin unless he has recurrent issues with GI blood loss. -Continue beta aliza -continue anticoagulation Maintenance issues - - DVT prophylaxis - mechanical - GI prophylaxis - PPI - Nutrition - diabetic diet Disposition - anticipate discharge home after the hospital stay Reilly Altman M.D.
[2017-04-30] MEDS: Warfarin 2.5 MG Tab PO SCH (14:06)
[2017-04-30] MEDS ORDERED: Insulin Detemir 100 Units/ML 3 ML Pen SUBCUT SCH (21:00)
[2017-04-30] MEDS: Simvastatin 20 MG Tab PO SCH (21:51)
[2017-04-30] MEDS: Insulin Detemir 100 Units/ML 3 ML Pen SUBCUT SCH (21:52)
[2017-05-01] MEDS: Finasteride 5 MG Tab PO SCH (09:14)
[2017-05-01] MEDS: Potassium Chloride 20 MEQ Tab.ER PO SCH (09:14)
[2017-05-01] MEDS: Metoprolol Tartrate 25 MG Tab PO SCH ×2 (09:14→21:14)
[2017-05-01] MEDS: Hypromellose 0.4% Ophth Soln 15 ML Bottle EYERT SCH (09:14)
[2017-05-01] MEDS: Aspirin 81 MG Tab.EC PO SCH (09:15)
[2017-05-01] MEDS: Bumetanide 1 MG Tab PO SCH (09:15)
[2017-05-01] MEDS: SAW PALMETTO (PTOM) PO SCH ×2 (09:15→20:15)
[2017-05-01] MEDS: Folic Acid 1 MG Tab PO SCH (09:15)
[2017-05-01] MEDS: Fluticasone Propionate Nasal Spray 16 GM Bottle NASBOTH SCH (09:16)
[2017-05-01] MEDS: Allopurinol 100 MG Tab PO SCH (09:16)
[2017-05-01] MEDS: Cyanocobalamin (Vitamin B12) 1,000 MCG Tab PO SCH (09:16)
[2017-05-01] MEDS: Insulin Aspart 100 Units/ML 3 ML Pen SUBCUT SCH ×5 (09:20→18:05)
--- NOTE | 2017-05-01 11:30 | PCM.PN ---
- General Info Date of Service: 05/01/17 Functional Status: Reports: Pain Controlled, Tolerating Diet. Denies: Ambulating - Review of Systems General: Reports: Weakness Cardiovascular: Reports: Dyspnea on Exertion Systems Review Comment:: No acute events overnight though he did not sleep very well. He did receive 2 units of blood via transfusion without any difficulties. He still reports some dyspnea with exertion and generally feels weak. He has not had any fevers. He is interested in staying at the intermediate but is also comfortable going home until a bed is available for him. - Patient Data Vitals - Most Recent: Last Vital Signs Temp 36.9 C 05/01/17 07:00 Pulse 77 05/01/17 09:14 Resp 18 05/01/17 07:00 BP 122/48 L 05/01/17 09:14 Pulse Ox 94 L 05/01/17 07:00 Weight - Most Recent: 140.358 kg I&O - Last 24 Hours: Intake & Output 04/30/17 05/01/17 05/01/17 22:59 06:59 14:59 Intake Total 815 386 360 Output Total 100 Balance 815 386 260 Lab Results Last 24 Hours: Laboratory Results - last 24 hr 04/29/17 05/01/17 Range/Units 14:46 05:21 Hgb 8.6 L (12.0-15.0) g/dL Blood Type A NEGATIVE Gel Antibody Screen Negative Crossmatch See Detail Med Orders - Current: Current Medications Acetaminophen (Tylenol) 650 mg PO Q4H PRN PRN Reason: Pain Albuterol (Proventil Neb Soln) 2.5 mg NEB Q4H PRN PRN Reason: Shortness Of Breath/wheezing Allopurinol (Zyloprim) 100 mg PO DAILY [facility] Last Admin: 05/01/17 09:16 Dose: 100 mg Alprazolam (Xanax) 0.25 mg PO DAILY PRN PRN Reason: Anxiety Artificial Tears (Natural Balance Tears) 0 ml EYERT DAILY [facility] Last Admin: 05/01/17 09:14 Dose: Not Given Aspirin (Halfprin) 81 mg PO DAILY [facility] Last Admin: 05/01/17 09:15 Dose: 81 mg Bumetanide (Bumex) 2 mg PO DAILY [facility] Last Admin: 05/01/17 09:15 Dose: 2 mg Cyanocobalamin (Vitamin B12) 1,000 mcg PO DAILY [facility] Last Admin: 05/01/17 09:16 Dose: 1,000 mcg Finasteride (Proscar) 5 mg PO DAILY [facility] Last Admin: 05/01/17 09:14 Dose: 5 mg Fluticasone Propionate (Flonase) 0 gm NASBOTH DAILY [facility] Last Admin: 05/01/17 09:16 Dose: 2 sprays Folic Acid (Folic Acid) 1 mg PO DAILY [facility] Last Admin: 05/01/17 09:15 Dose: 1 mg Insulin Aspart (Novolog) 0 unit SUBCUT ASDIRECTED [facility] PRN Reason: Protocol Last Admin: 04/30/17 17:52 Dose: 4 units Insulin Aspart (Novolog) 12 unit SUBCUT TIDMEALS [facility] Last Admin: 05/01/17 09:20 Dose: 12 units Insulin Detemir (Levemir) 36 unit SUBCUT BEDTIME [facility] Last Admin: 04/30/17 21:52 Dose: 36 units Levothyroxine Sodium 100 mcg/ (Levothyroxine Sodium 50 mcg) 150 mcg PO ACBREAKFAST [facility] Last Admin: 05/01/17 09:14 Dose: 150 mcg Metoprolol Tartrate (Lopressor) 12.5 mg PO BID [facility] Last Admin: 05/01/17 09:14 Dose: 12.5 mg Ondansetron HCl (Zofran Odt) 4 mg PO Q6H PRN PRN Reason: Nausea able to take PO Saw [place] (Ptom) 0 each PO BID [facility] Last Admin: 05/01/17 09:15 Dose: Not Given Potassium Chloride (Klor-Con M20) 20 meq PO DAILY [facility] Last Admin: 05/01/17 09:14 Dose: 20 meq Senna/Docusate Sodium (Senna Plus) 1 tab PO BID [facility] Last Admin: 05/01/17 09:15 Dose: Not Given Simvastatin (Zocor) 20 mg PO BEDTIME [facility] Last Admin: 04/30/17 21:51 Dose: 20 mg Sodium Chloride (Saline Flush) 10 ml FLUSH ASDIRECTED PRN PRN Reason: Keep Vein Open Warfarin Sodium (Coumadin) 2.5 mg PO DAILY@1300 [facility] Last Admin: 04/30/17 14:06 Dose: 2.5 mg Discontinued Medications Bupivacaine HCl/Epinephrine Bitart (Marcaine 0.5%/Epinephrine 1:200,000) Confirm Administered Dose 50 ml .ROUTE .STK-MED ONE Stop: 04/30/17 07:04 Lactated Ringer's (Ringers, Lactated) Confirm Administered Dose 1,000 mls @ as directed .ROUTE .STK-MED ONE Stop: 04/30/17 08:07 Insulin Aspart (Novolog) 8 unit SUBCUT TIDMEALS [facility] Last Admin: 04/30/17 09:50 Dose: 8 units Insulin Detemir (Levemir) 20 unit SUBCUT BEDTIME [facility] Last Admin: 04/29/17 21:24 Dose: 20 units Insulin Detemir (Levemir) 20 unit SUBCUT BEDTIME [facility] Polyethylene Glycol (Miralax) 238 gm PO ONETIME ONE Stop: 04/29/17 15:01 Last Admin: 04/29/17 16:40 Dose: 238 gm Propofol (Diprivan 20 Ml) Confirm Administered Dose 200 mg .ROUTE .STK-MED ONE Stop: 04/30/17 07:06 Propofol (Diprivan 20 Ml) Confirm Administered Dose 200 mg .ROUTE .STK-MED ONE Stop: 04/30/17 08:07 - Exam Quality Assessment: No: Supplemental Oxygen General: Alert, Oriented, Cooperative, No Acute Distress Neck: Supple Lungs: Normal Respiratory Effort GI/Abdominal Exam: No Distention Extremities: Pedal Edema Psy/Mental Status: Alert, Normal Affect - Problem List & Annotations (1) Normocytic anemia SNOMED Code(s): 955228251 Code(s): D64.9 - ANEMIA, UNSPECIFIED Status: Acute Current Visit: Yes (2) Chronic kidney disease, stage 3 SNOMED Code(s): 021142613 Code(s): N18.3 - CHRONIC KIDNEY DISEASE, STAGE 3 (MODERATE) Status: Chronic Current Visit: Yes (3) Venous stasis dermatitis of both lower extremities SNOMED Code(s): 73218430 Code(s): I87.2 - VENOUS INSUFFICIENCY (CHRONIC) (PERIPHERAL) Status: Chronic Current Visit: Yes (4) Hypothyroidism (acquired) SNOMED Code(s): 659765495 Code(s): E03.9 - HYPOTHYROIDISM, UNSPECIFIED Status: Chronic Current Visit: Yes (5) Morbid obesity with BMI of 40.0-44.9, adult SNOMED Code(s): 462416537 Code(s): E66.01 - MORBID (SEVERE) OBESITY DUE TO EXCESS CALORIES; Z68.41 - BODY MASS INDEX (BMI) 40.0-44.9, ADULT Status: Chronic Current Visit: No (6) Chronic atrial flutter SNOMED Code(s): 060723743 Code(s): I48.92 - UNSPECIFIED ATRIAL FLUTTER Status: Chronic Current Visit: Yes (7) Insulin dependent diabetes mellitus SNOMED Code(s): 39434691 Code(s): E11.9 - TYPE 2 DIABETES MELLITUS WITHOUT COMPLICATIONS; Z79.4 - [facility] (CURRENT) USE OF INSULIN Status: Chronic Current Visit: Yes - Problem List Review Problem List Initiated/Reviewed/Updated: Yes - My Orders Last 24 Hours: My Active Orders 04/30/17 12:00 Insulin Aspart [NovoLOG] 12 unit SUBCUT TIDMEALS 04/30/17 13:00 Warfarin [Coumadin] 2.5 mg PO DAILY@1300 04/30/17 21:00 Docusate Sodium/Sennosides [Senna Plus] 1 tab PO BID Insulin Detemir [Levemir] 36 unit SUBCUT BEDTIME 04/30/17 Lunch Consistent Carbohydrate Diet [DIET] 05/01/17 11:28 PT Evaluation and Treatment [CONS] Routine 05/01/17 11:30 GLUCOSE POC LAB TO COLLECT [POC] QIDACANDBED 05/01/17 16:30 GLUCOSE POC LAB TO COLLECT [POC] QIDACANDBED 05/01/17 21:00 GLUCOSE POC LAB TO COLLECT [POC] QIDACANDBED 05/02/17 05:00 HGB [HEMOGLOBIN] [HEME] Timed INR,PT,PROTHROMBIN TIME [COAG] Timed 05/02/17 07:30 GLUCOSE POC LAB TO COLLECT [POC] QIDACANDBED 05/02/17 11:30 GLUCOSE POC LAB TO COLLECT [POC] QIDACANDBED - Plan Plan:: ASSESSMENT AND PLAN - Symptomatic normocytic anemia - most likely secondary to chronic GI blood loss. Patient is on long-term warfarin and the risk of the medication versus the risk of not being on and I think remains in favor of staying on the medication as discussed below. No obvious source of bleeding but diverticular source most likely.no evidence for hemolysis. Tolerated transfusion well and stable with improved hemoglobin this morning. -Repeat hemoglobin in the morning Stage III chronic kidney disease - Kidney function has been stable to improving recently. Possibly some contribution to low hemoglobin though kidney function has been slowly improving. Insulin-dependent diabetes mellitus - Control has been acceptable recently. Usual medications will be continued. Chronic atrial flutter - chronically anticoagulated as above. Currently rate controlled. CHADSS-VASC score fairly high and the plan is to continue warfarin unless he has recurrent issues with GI blood loss. -Continue beta aliza -continue anticoagulation Maintenance issues - - DVT prophylaxis - mechanical - GI prophylaxis - PPI - Nutrition - diabetic diet Disposition - anticipate discharge home after the hospital stay. He will receive physical therapy throughout the day today and should be safe for discharge tomorrow with the plan to continue home care and get him into the intermediate as soon as possible when a bed is available. Reilly Altman M.D.
[2017-05-01] MEDS: Warfarin 2.5 MG Tab PO SCH (14:26)
[2017-05-01] MEDS ORDERED: Dimethicone 20%/Zinc Oxide 25% 56 GM Spray Bottle TOP PRN (16:14)
[2017-05-01] MEDS: Insulin Detemir 100 Units/ML 3 ML Pen SUBCUT SCH (21:12)
[2017-05-01] MEDS: Simvastatin 20 MG Tab PO SCH (21:13)
--- NOTE | 2017-05-01 21:50 | PCM.SN ---
- Free Text/Narrative Note: call from [address] [place] [address] Nursing; request sleeping aid; Melatonin a; sleep disruption p. Melatonin 6mg po every hs prn sleeplessness. continue present plan of care.
[2017-05-01] MEDS: Melatonin 3 MG Tab PO PRN (22:15)
[2017-05-02] MEDS: Aspirin 81 MG Tab.EC PO SCH (09:04)
[2017-05-02] MEDS: Folic Acid 1 MG Tab PO SCH (09:04)
[2017-05-02] MEDS: Bumetanide 1 MG Tab PO SCH (09:04)
[2017-05-02] MEDS: Fluticasone Propionate Nasal Spray 16 GM Bottle NASBOTH SCH (09:04)
[2017-05-02] MEDS: Hypromellose 0.4% Ophth Soln 15 ML Bottle EYERT SCH (09:05)
[2017-05-02] MEDS: Potassium Chloride 20 MEQ Tab.ER PO SCH (09:05)
[2017-05-02] MEDS: Finasteride 5 MG Tab PO SCH (09:06)
[2017-05-02] MEDS: SAW PALMETTO (PTOM) PO SCH ×2 (09:06→21:23)
[2017-05-02] MEDS: Cyanocobalamin (Vitamin B12) 1,000 MCG Tab PO SCH (09:07)
[2017-05-02] MEDS: Allopurinol 100 MG Tab PO SCH (09:08)
[2017-05-02] MEDS: Metoprolol Tartrate 25 MG Tab PO SCH ×2 (09:08→21:20)
[2017-05-02] MEDS: Insulin Aspart 100 Units/ML 3 ML Pen SUBCUT SCH ×7 (09:14→21:18)
--- NOTE | 2017-05-02 12:22 | PCM.PN ---
- General Info Date of Service: 05/02/17 Functional Status: Reports: Pain Controlled - Review of Systems General: Reports: Weakness Cardiovascular: Reports: Dyspnea on Exertion Systems Review Comment:: No acute events overnight. Still urinating frequently but he is on good medication and is allergic to tamsulosin. He feels tired and short of breath with any activity. No complaints of chest pain or abdominal pain. He does not feel safe going home today with ongoing symptoms. No evidence for bleeding. Hemoglobin slightly less today than yesterday at 8.1. - Patient Data Vitals - Most Recent: Last Vital Signs Temp 36.3 C 05/02/17 09:19 Pulse 70 05/02/17 09:19 Resp 18 05/02/17 09:19 BP 134/42 L 05/02/17 09:19 Pulse Ox 97 05/02/17 09:19 Weight - Most Recent: 140.358 kg I&O - Last 24 Hours: Intake & Output 05/01/17 05/02/17 05/02/17 22:59 06:59 14:59 Intake Total 240 120 480 Output Total 200 Balance 40 120 480 Lab Results Last 24 Hours: Laboratory Results - last 24 hr 05/02/17 05/02/17 Range/Units 05:16 05:16 Hgb 8.1 L (12.0-15.0) g/dL PT 16.3 H (9.5-12.0) sec INR 1.50 H (0.80-1.20) Med Orders - Current: Current Medications Acetaminophen (Tylenol) 650 mg PO Q4H PRN PRN Reason: Pain Albuterol (Proventil Neb Soln) 2.5 mg NEB Q4H PRN PRN Reason: Shortness Of Breath/wheezing Allopurinol (Zyloprim) 100 mg PO DAILY [facility] Last Admin: 05/02/17 09:08 Dose: 100 mg Alprazolam (Xanax) 0.25 mg PO DAILY PRN PRN Reason: Anxiety Artificial Tears (Natural Balance Tears) 0 ml EYERT DAILY [facility] Last Admin: 05/02/17 09:05 Dose: Not Given Aspirin (Halfprin) 81 mg PO DAILY [facility] Last Admin: 05/02/17 09:04 Dose: 81 mg Bumetanide (Bumex) 2 mg PO DAILY [facility] Last Admin: 05/02/17 09:04 Dose: 2 mg Cyanocobalamin (Vitamin B12) 1,000 mcg PO DAILY [facility] Last Admin: 05/02/17 09:07 Dose: 1,000 mcg Dimethicone/Zinc Oxide (Rash Relief-Zinc Oxide [place]) 1 gm TOP ASDIRECTED PRN PRN Reason: Rash Last Admin: 05/01/17 18:10 Dose: 1 applic Ferrous Sulfate (Ferrous Sulfate) 325 mg PO BIDMEALS [facility] Finasteride (Proscar) 5 mg PO DAILY [facility] Last Admin: 05/02/17 09:06 Dose: 5 mg Fluticasone Propionate (Flonase) 0 gm NASBOTH DAILY [facility] Last Admin: 05/02/17 09:04 Dose: 2 sprays Folic Acid (Folic Acid) 1 mg PO DAILY [facility] Last Admin: 05/02/17 09:04 Dose: 1 mg Insulin Aspart (Novolog) 0 unit SUBCUT ASDIRECTED [facility] PRN Reason: Protocol Last Admin: 05/02/17 09:15 Dose: 2 units Insulin Aspart (Novolog) 12 unit SUBCUT TIDMEALS [facility] Last Admin: 05/02/17 09:14 Dose: 12 units Insulin Detemir (Levemir) 36 unit SUBCUT BEDTIME [facility] Last Admin: 05/01/17 21:12 Dose: 36 units Levothyroxine Sodium 100 mcg/ (Levothyroxine Sodium 50 mcg) 150 mcg PO ACBREAKFAST [facility] Last Admin: 05/02/17 09:04 Dose: 150 mcg Melatonin (Melatonin) 6 mg PO BEDTIME PRN PRN Reason: Insomnia Last Admin: 05/01/17 22:15 Dose: 6 mg Metoprolol Tartrate (Lopressor) 12.5 mg PO BID [facility] Last Admin: 05/02/17 09:08 Dose: 12.5 mg Ondansetron HCl (Zofran Odt) 4 mg PO Q6H PRN PRN Reason: Nausea able to take PO Saw [place] (Ptom) 0 each PO BID [facility] Last Admin: 05/02/17 09:06 Dose: Not Given Potassium Chloride (Klor-Con M20) 20 meq PO DAILY [facility] Last Admin: 05/02/17 09:05 Dose: 20 meq Senna/Docusate Sodium (Senna Plus) 1 tab PO BID [facility] Last Admin: 05/02/17 09:07 Dose: 1 tab Simvastatin (Zocor) 20 mg PO BEDTIME [facility] Last Admin: 05/01/17 21:13 Dose: 20 mg Sodium Chloride (Saline Flush) 10 ml FLUSH ASDIRECTED PRN PRN Reason: Keep Vein Open Warfarin Sodium (Coumadin) 2.5 mg PO DAILY@1300 [facility] Last Admin: 05/01/17 14:26 Dose: 2.5 mg Discontinued Medications Bupivacaine HCl/Epinephrine Bitart (Marcaine 0.5%/Epinephrine 1:200,000) Confirm Administered Dose 50 ml .ROUTE .STK-MED ONE Stop: 04/30/17 07:04 Lactated Ringer's (Ringers, Lactated) Confirm Administered Dose 1,000 mls @ as directed .ROUTE .STK-MED ONE Stop: 04/30/17 08:07 Insulin Aspart (Novolog) 8 unit SUBCUT TIDMEALS [facility] Last Admin: 04/30/17 09:50 Dose: 8 units Insulin Detemir (Levemir) 20 unit SUBCUT BEDTIME [facility] Last Admin: 04/29/17 21:24 Dose: 20 units Insulin Detemir (Levemir) 20 unit SUBCUT BEDTIME [facility] Polyethylene Glycol (Miralax) 238 gm PO ONETIME ONE Stop: 04/29/17 15:01 Last Admin: 04/29/17 16:40 Dose: 238 gm Propofol (Diprivan 20 Ml) Confirm Administered Dose 200 mg .ROUTE .STK-MED ONE Stop: 04/30/17 07:06 Propofol (Diprivan 20 Ml) Confirm Administered Dose 200 mg .ROUTE .STK-MED ONE Stop: 04/30/17 08:07 - Exam Quality Assessment: No: Supplemental Oxygen General: Alert, Oriented, Cooperative, No Acute Distress Lungs: Normal Respiratory Effort GI/Abdominal Exam: No Distention Extremities: Pedal Edema Psy/Mental Status: Alert, Normal Affect - Problem List & Annotations (1) Normocytic anemia SNOMED Code(s): 839331286 Code(s): D64.9 - ANEMIA, UNSPECIFIED Status: Acute Current Visit: Yes (2) Chronic kidney disease, stage 3 SNOMED Code(s): 206598413 Code(s): N18.3 - CHRONIC KIDNEY DISEASE, STAGE 3 (MODERATE) Status: Chronic Current Visit: Yes (3) Venous stasis dermatitis of both lower extremities SNOMED Code(s): 00735091 Code(s): I87.2 - VENOUS INSUFFICIENCY (CHRONIC) (PERIPHERAL) Status: Chronic Current Visit: Yes (4) Hypothyroidism (acquired) SNOMED Code(s): 183903801 Code(s): E03.9 - HYPOTHYROIDISM, UNSPECIFIED Status: Chronic Current Visit: Yes (5) Morbid obesity with BMI of 40.0-44.9, adult SNOMED Code(s): 891438563 Code(s): E66.01 - MORBID (SEVERE) OBESITY DUE TO EXCESS CALORIES; Z68.41 - BODY MASS INDEX (BMI) 40.0-44.9, ADULT Status: Chronic Current Visit: No (6) Chronic atrial flutter SNOMED Code(s): 514185886 Code(s): I48.92 - UNSPECIFIED ATRIAL FLUTTER Status: Chronic Current Visit: Yes (7) Insulin dependent diabetes mellitus SNOMED Code(s): 74359496 Code(s): E11.9 - TYPE 2 DIABETES MELLITUS WITHOUT COMPLICATIONS; Z79.4 - NEUROSCIENTIST (CURRENT) USE OF INSULIN Status: Chronic Current Visit: Yes - Problem List Review Problem List Initiated/Reviewed/Updated: Yes - My Orders Last 24 Hours: My Active Orders 05/01/17 11:28 PT Evaluation and Treatment [CONS] Routine 05/01/17 16:14 Dimethicone/Zinc Oxide [Rash Relief-Zinc Oxide [place]] 1 gm TOP ASDIRECTED PRN 05/02/17 17:00 Ferrous Sulfate 325 mg PO BIDMEALS 05/03/17 05:00 HGB [HEMOGLOBIN] [HEME] Timed - Plan Plan:: ASSESSMENT AND PLAN - Symptomatic normocytic anemia - suspect combination of recent blood loss due to epistaxis and tooth extraction with possibly some mild GI blood loss though workup has been negative. Tolerated blood transfusion and hemoglobin has remained relatively stable. No evidence for ongoing bleeding but still symptomatic with dyspnea. -Repeat hemoglobin in the morning Stage III chronic kidney disease - Kidney function has been stable to improving recently. Possibly some contribution to low hemoglobin though kidney function has been slowly improving. Insulin-dependent diabetes mellitus - Control has been acceptable recently. Usual medications will be continued. Chronic atrial flutter - chronically anticoagulated as above. Currently rate controlled. CHADSS-VASC score fairly high and the plan is to continue warfarin unless he has recurrent issues with GI blood loss. -Continue beta aliza -continue anticoagulation Maintenance issues - - DVT prophylaxis - mechanical - GI prophylaxis - PPI - Nutrition - diabetic diet Disposition - patient [facility] after the hospital stay but requests that he be discharged only to one of 2 nursing homes in the area. We will check and see in the morning if there are [facility] beds available and go from there. He may be able to go home with home care and family for a few days if no beds are available at his preferred nursing homes. Reilly Altman M.D.
[2017-05-02] MEDS: Warfarin 2.5 MG Tab PO SCH (13:36)
[2017-05-02] MEDS: Ferrous Sulfate 325 MG Tab PO SCH (17:08)
[2017-05-02] MEDS: Insulin Detemir 100 Units/ML 3 ML Pen SUBCUT SCH (21:16)
[2017-05-02] MEDS: Melatonin 3 MG Tab PO PRN (21:24)
[2017-05-02] MEDS: Simvastatin 20 MG Tab PO SCH (21:24)
[2017-05-03] MEDS: Ferrous Sulfate 325 MG Tab PO SCH ×2 (08:00→16:48)
[2017-05-03] MEDS: Insulin Aspart 100 Units/ML 3 ML Pen SUBCUT SCH ×5 (08:01→21:36)
[2017-05-03] MEDS: Bumetanide 1 MG Tab PO SCH (08:30)
[2017-05-03] MEDS: Folic Acid 1 MG Tab PO SCH (08:30)
[2017-05-03] MEDS: Potassium Chloride 20 MEQ Tab.ER PO SCH (08:30)
[2017-05-03] MEDS: Fluticasone Propionate Nasal Spray 16 GM Bottle NASBOTH SCH (08:30)
[2017-05-03] MEDS: Hypromellose 0.4% Ophth Soln 15 ML Bottle EYERT SCH (08:31)
[2017-05-03] MEDS: Aspirin 81 MG Tab.EC PO SCH (08:31)
[2017-05-03] MEDS: Finasteride 5 MG Tab PO SCH (08:32)
[2017-05-03] MEDS: SAW PALMETTO (PTOM) PO SCH ×2 (08:32→21:43)
[2017-05-03] MEDS: Cyanocobalamin (Vitamin B12) 1,000 MCG Tab PO SCH (08:32)
[2017-05-03] MEDS: Metoprolol Tartrate 25 MG Tab PO SCH ×2 (08:33→21:42)
[2017-05-03] MEDS: Allopurinol 100 MG Tab PO SCH (08:33)
[2017-05-03] MEDS: Warfarin 2.5 MG Tab PO SCH (12:32)
--- NOTE | 2017-05-03 14:29 | PCM.PN ---
- General Info Date of Service: 05/03/17 Functional Status: Reports: Pain Controlled - Review of Systems General: Reports: Weakness Cardiovascular: Reports: Dyspnea on Exertion Systems Review Comment:: No acute events overnight. He complains of weakness and dyspnea with exertion. Vital signs have been stable. Hemoglobin has been stable with no evidence for bleeding. He feels like he probably should go to the group home rather than home at this time. - Patient Data Vitals - Most Recent: Last Vital Signs Temp 36 C 05/03/17 10:56 Pulse 70 05/03/17 10:56 Resp 20 05/03/17 10:56 BP 129/41 L 05/03/17 10:56 Pulse Ox 97 05/03/17 10:56 Weight - Most Recent: 140.358 kg I&O - Last 24 Hours: Intake & Output 05/02/17 05/03/17 05/03/17 22:59 06:59 14:59 Intake Total 1130 Output Total 100 Balance -100 1130 Lab Results Last 24 Hours: Laboratory Results - last 24 hr 04/29/17 05/03/17 Range/Units 14:46 06:00 Hgb 8.3 L (12.0-15.0) g/dL Crossmatch See Detail Med Orders - Current: Current Medications Acetaminophen (Tylenol) 650 mg PO Q4H PRN PRN Reason: Pain Albuterol (Proventil Neb Soln) 2.5 mg NEB Q4H PRN PRN Reason: Shortness Of Breath/wheezing Allopurinol (Zyloprim) 100 mg PO DAILY [facility] Last Admin: 05/03/17 08:33 Dose: 100 mg Alprazolam (Xanax) 0.25 mg PO DAILY PRN PRN Reason: Anxiety Last Admin: 05/02/17 23:54 Dose: 0.25 mg Artificial Tears (Natural Balance Tears) 0 ml EYERT DAILY [facility] Last Admin: 05/03/17 08:31 Dose: Not Given Aspirin (Halfprin) 81 mg PO DAILY [facility] Last Admin: 05/03/17 08:31 Dose: 81 mg Bumetanide (Bumex) 2 mg PO DAILY [facility] Last Admin: 05/03/17 08:30 Dose: 2 mg Cyanocobalamin (Vitamin B12) 1,000 mcg PO DAILY [facility] Last Admin: 05/03/17 08:32 Dose: 1,000 mcg Dimethicone/Zinc Oxide (Rash Relief-Zinc Oxide [place]) 1 gm TOP ASDIRECTED PRN PRN Reason: Rash Last Admin: 05/01/17 18:10 Dose: 1 applic Ferrous Sulfate (Ferrous Sulfate) 325 mg PO BIDMEALS [facility] Last Admin: 05/03/17 08:00 Dose: 325 mg Finasteride (Proscar) 5 mg PO DAILY [facility] Last Admin: 05/03/17 08:32 Dose: 5 mg Fluticasone Propionate (Flonase) 0 gm NASBOTH DAILY [facility] Last Admin: 05/03/17 08:30 Dose: 2 sprays Folic Acid (Folic Acid) 1 mg PO DAILY [facility] Last Admin: 05/03/17 08:30 Dose: 1 mg Insulin Aspart (Novolog) 0 unit SUBCUT ASDIRECTED [facility] PRN Reason: Protocol Last Admin: 05/02/17 21:18 Dose: 6 units Insulin Aspart (Novolog) 12 unit SUBCUT TIDMEALS [facility] Last Admin: 05/03/17 12:28 Dose: 12 units Insulin Detemir (Levemir) 36 unit SUBCUT BEDTIME [facility] Last Admin: 05/02/17 21:16 Dose: 36 units Levothyroxine Sodium 100 mcg/ (Levothyroxine Sodium 50 mcg) 150 mcg PO ACBREAKFAST [facility] Last Admin: 05/03/17 07:30 Dose: 150 mcg Melatonin (Melatonin) 6 mg PO BEDTIME PRN PRN Reason: Insomnia Last Admin: 05/02/17 21:24 Dose: 6 mg Metoprolol Tartrate (Lopressor) 12.5 mg PO BID [facility] Last Admin: 05/03/17 08:33 Dose: 12.5 mg Ondansetron HCl (Zofran Odt) 4 mg PO Q6H PRN PRN Reason: Nausea able to take PO Saw [place] (Ptom) 0 each PO BID [facility] Last Admin: 05/03/17 08:32 Dose: Not Given Potassium Chloride (Klor-Con M20) 20 meq PO DAILY [facility] Last Admin: 05/03/17 08:30 Dose: 20 meq Senna/Docusate Sodium (Senna Plus) 1 tab PO BID [facility] Last Admin: 05/03/17 08:32 Dose: 1 tab Simvastatin (Zocor) 20 mg PO BEDTIME [facility] Last Admin: 05/02/17 21:24 Dose: 20 mg Sodium Chloride (Saline Flush) 10 ml FLUSH ASDIRECTED PRN PRN Reason: Keep Vein Open Warfarin Sodium (Coumadin) 2.5 mg PO DAILY@1300 [facility] Last Admin: 05/03/17 12:32 Dose: 2.5 mg Discontinued Medications Bupivacaine HCl/Epinephrine Bitart (Marcaine 0.5%/Epinephrine 1:200,000) Confirm Administered Dose 50 ml .ROUTE .STK-MED ONE Stop: 04/30/17 07:04 Lactated Ringer's (Ringers, Lactated) Confirm Administered Dose 1,000 mls @ as directed .ROUTE .STK-MED ONE Stop: 04/30/17 08:07 Insulin Aspart (Novolog) 8 unit SUBCUT TIDMEALS [facility] Last Admin: 04/30/17 09:50 Dose: 8 units Insulin Detemir (Levemir) 20 unit SUBCUT BEDTIME [facility] Last Admin: 04/29/17 21:24 Dose: 20 units Insulin Detemir (Levemir) 20 unit SUBCUT BEDTIME [facility] Polyethylene Glycol (Miralax) 238 gm PO ONETIME ONE Stop: 04/29/17 15:01 Last Admin: 04/29/17 16:40 Dose: 238 gm Propofol (Diprivan 20 Ml) Confirm Administered Dose 200 mg .ROUTE .STK-MED ONE Stop: 04/30/17 07:06 Propofol (Diprivan 20 Ml) Confirm Administered Dose 200 mg .ROUTE .STK-MED ONE Stop: 04/30/17 08:07 - Exam Quality Assessment: No: Supplemental Oxygen General: Alert, Oriented, Cooperative, No Acute Distress Neck: Supple Lungs: Normal Respiratory Effort GI/Abdominal Exam: No Distention Extremities: Pedal Edema Psy/Mental Status: Alert, Normal Affect - Problem List & Annotations (1) Normocytic anemia SNOMED Code(s): 978643202 Code(s): D64.9 - ANEMIA, UNSPECIFIED Status: Acute Current Visit: Yes (2) Chronic kidney disease, stage 3 SNOMED Code(s): 537736223 Code(s): N18.3 - CHRONIC KIDNEY DISEASE, STAGE 3 (MODERATE) Status: Chronic Current Visit: Yes (3) Venous stasis dermatitis of both lower extremities SNOMED Code(s): 21689000 Code(s): I87.2 - VENOUS INSUFFICIENCY (CHRONIC) (PERIPHERAL) Status: Chronic Current Visit: Yes (4) Hypothyroidism (acquired) SNOMED Code(s): 446903918 Code(s): E03.9 - HYPOTHYROIDISM, UNSPECIFIED Status: Chronic Current Visit: Yes (5) Morbid obesity with BMI of 40.0-44.9, adult SNOMED Code(s): 217356130 Code(s): E66.01 - MORBID (SEVERE) OBESITY DUE TO EXCESS CALORIES; Z68.41 - BODY MASS INDEX (BMI) 40.0-44.9, ADULT Status: Chronic Current Visit: No (6) Chronic atrial flutter SNOMED Code(s): 908585203 Code(s): I48.92 - UNSPECIFIED ATRIAL FLUTTER Status: Chronic Current Visit: Yes (7) Insulin dependent diabetes mellitus SNOMED Code(s): 25244736 Code(s): E11.9 - TYPE 2 DIABETES MELLITUS WITHOUT COMPLICATIONS; Z79.4 - FURNACE COMBINATION ANALYST (CURRENT) USE OF INSULIN Status: Chronic Current Visit: Yes (8) Generalized weakness SNOMED Code(s): 53760698 Code(s): R53.1 - WEAKNESS Status: Acute Current Visit: Yes - Problem List Review Problem List Initiated/Reviewed/Updated: Yes - My Orders Last 24 Hours: My Active Orders 05/02/17 17:00 Ferrous Sulfate 325 mg PO BIDMEALS 05/03/17 16:30 GLUCOSE POC LAB TO COLLECT [POC] QIDACANDBED 05/03/17 21:00 GLUCOSE POC LAB TO COLLECT [POC] QIDACANDBED 05/04/17 05:00 HGB [HEMOGLOBIN] [HEME] Timed INR,PT,PROTHROMBIN TIME [COAG] Timed - Plan Plan:: ASSESSMENT AND PLAN - Symptomatic normocytic anemia - suspect combination of recent blood loss due to epistaxis and tooth extraction with possibly some mild GI blood loss though workup has been negative. Stable since transfusion but still has dyspnea with exertion. -Repeat hemoglobin in the morning Generalized weakness - likely multifactorial. Patient does not feel safe at home at this time. -Continue physical therapy -Attempt to find group home placement Stage III chronic kidney disease - Kidney function has been stable to improving recently. Possibly some contribution to low hemoglobin though kidney function has been slowly improving. Insulin-dependent diabetes mellitus - Control has been acceptable recently. Usual medications will be continued. Chronic atrial flutter - chronically anticoagulated as above. Currently rate controlled. CHADSS-VASC score fairly high and the plan is to continue warfarin unless he has recurrent issues with GI blood loss. -Continue beta aliza -continue anticoagulation Maintenance issues - - DVT prophylaxis - mechanical - GI prophylaxis - PPI - Nutrition - diabetic diet Disposition - patient wishes to go to the group home for strengthening after the hospital stay and is now open to a larger variety of group home locations. Referrals will be placed. Home with home care is still an option but we will try to find group home placement to help with his weakness. Reilly Altman M.D.
--- NOTE | 2017-05-03 16:43 | PCM.DCSUM1 ---
Discharge Summary - Hospital Course Brief History: 86 yr old male with hx of CKD III, IDDM, obesity who presented from the [facility]rology [facility] with symptomatic anemia and was admitted for blood transfusion and additional work up - Discharge Data Discharge Date: 05/03/17 Discharge Disposition: DC/Tfer to SNF 03 Condition: Fair - Discharge Diagnosis/Problem(s) (1) Normocytic anemia SNOMED Code(s): 955956432 ICD Code: D64.9 - ANEMIA, UNSPECIFIED Status: Acute Current Visit: Yes (2) Chronic kidney disease, stage 3 SNOMED Code(s): 287905976 ICD Code: N18.3 - CHRONIC KIDNEY DISEASE, STAGE 3 (MODERATE) Status: Chronic Current Visit: Yes (3) Venous stasis dermatitis of both lower extremities SNOMED Code(s): 62377067 ICD Code: I87.2 - VENOUS INSUFFICIENCY (CHRONIC) (PERIPHERAL) Status: Chronic Current Visit: Yes (4) Hypothyroidism (acquired) SNOMED Code(s): 015864764 ICD Code: E03.9 - HYPOTHYROIDISM, UNSPECIFIED Status: Chronic Current Visit: Yes (5) Morbid obesity with BMI of 40.0-44.9, adult SNOMED Code(s): 760901406 ICD Code: E66.01 - MORBID (SEVERE) OBESITY DUE TO EXCESS CALORIES; Z68.41 - BODY MASS INDEX (BMI) 40.0-44.9, ADULT Status: Chronic Current Visit: No (6) Chronic atrial flutter SNOMED Code(s): 135845766 ICD Code: I48.92 - UNSPECIFIED ATRIAL FLUTTER Status: Chronic Current Visit: Yes (7) Insulin dependent diabetes mellitus SNOMED Code(s): 51252736 ICD Code: E11.9 - TYPE 2 DIABETES MELLITUS WITHOUT COMPLICATIONS; Z79.4 - VICE PRESIDENT INDUSTRIAL RELATIONS (CURRENT) USE OF INSULIN Status: Chronic Current Visit: Yes (8) Generalized weakness SNOMED Code(s): 17430703 ICD Code: R53.1 - WEAKNESS Status: Acute Current Visit: Yes - Patient Summary/Data Consults: Consultations 04/29/17 14:21 Consult to Physician [CONS] Routine Consulting Provider: Barrett Orlando Call Completed to Consulting Physician: Yes Reason for Consult: anemia, consider EGD and colon Person Notified: RW Date Notified: 04/29/17 05/01/17 11:28 PT Evaluation and Treatment [CONS] Routine Please Evaluate and Treat. PT Reason for Consult: Strengthening This query below is only for informational purposes and is not editable. Admission Diagnosis/Problem: Anemia Hospital Course: Donnie presented as a direct admission from the nephrology clinic after being seen for chronic kidney disease follow-up. His hemoglobin there was noted to be 7.2 and admission for blood transfusion and additional workup was recommended. after arrival from the clinic iron studies and ferritin level as well as LDH were obtained. 2 units of blood were requested. The iron studies suggested mild iron deficiency. The LDH level was normal. Unfortunately we were not able to complete a blood transfusion because of an ABO discrepancy. Blood had to be sent to a specialty lab for further study prior to blood transfusion. Fortunately the patient remained stable throughout the course of the early hospital stay. the morning after admission he had an EGD and colonoscopy performed by Dr. Orlando. The EGD showed mild to moderate gastritis but no evidence for bleeding. The colonoscopy prep was suboptimal and only a partial colonoscopy was obtained. There was significant diverticulosis but no evidence for new or old blood in the colon. No evidence for bleeding was identified. Blood was available the second day after admission and he tolerated the transfusion without difficulty. The next morning his hemoglobin is stable and his dyspnea is a little better. He remains very weak and is not comfortable going home at this time because of his weakness and difficulty getting around. He has not had any evidence for bleeding. the patient remained hospitalized for 2 additional days because he did not feel safe going home. He has been stable and is safe for discharge from the hospital but does not have a safe discharge plan at this time. Throughout the hospital stay he became more interested in snf admission but unfortunately no beds were available locally so we can look further to find available snf bed. He would benefit from subacute rehabilitation with physical and occupational therapy to improve his strength and endurance. He has multiple chronic medical issues which have all been stable. I did start him on an iron supplement to help with his iron deficiency anemia which probably is the result of acute on chronic blood loss. He has a high risk of stroke if he is to go off of his warfarin and at this point the benefits of staying on warfarin outweighed the risks. He will be discharged to the snf for rehabilitation. - Patient Instructions Diet: Diabetic Diet (1800 Calorie ADA) Activity: As Tolerated Activity, Other: up with assistance and walker Showering/Bathing: May Shower Notify Provider of: Fever, Increased Pain, Nausea and/or Vomiting Other/Special Instructions: 1. You were in the hospital for workup and management of normocytic anemia. I suspect the low hemoglobin level was the result of acute blood loss with recent nosebleeds and dental extractions. There may have been some contribution from chronic kidney disease as well. There was no evidence for gastrointestinal blood loss based on the EGD or colonoscopy. Your levels have improved with blood transfusion. I do recommend that you continue to take an iron supplement twice daily after hospital discharge to help improve your levels further. 2. Referral to PT and OT for strengthening - dx: generalized weakness. 3. Code status - DNI/DNR. 4. Please seek medical attention if you develop fever greater than 101, have severe shortness of breath or sudden onset of chest pain/chest tightness - Discharge Plan Prescriptions/Med Rec: ALPRAZolam [Xanax] 0.25 mg PO DAILY PRN #30 tablet PRN Reason: Anxiety Docusate Sodium/Sennosides [Senna Plus] 1 tab PO BID #60 tablet Ferrous Sulfate 325 mg PO BIDMEALS #60 tablet Home Medications: Home Meds Albuterol Sulfate [Proair Hfa] 2 puff INH Q4H PRN 10/14/13 [History] Bumetanide [Bumex] 2 mg PO DAILY 10/14/13 [History] Clotrimazole/Betamethasone Dip [Lotrisone Cream] 1 applic TOP BID 10/14/13 [ History] Finasteride [Proscar] 5 mg PO DAILY 10/14/13 [History] Insulin Aspart [Novolog Flexpen] 12 unit SQ QAM 10/14/13 [History] Insulin Glarg,Human.Rec.Analog [Lantus] 36 units SQ BEDTIME 10/14/13 [History] Levothyroxine Sodium [Synthroid] 150 mcg PO DAILY 10/14/13 [History] Nitroglycerin [Nitrostat] 0.4 mg SL ASDIRECTED PRN 10/14/13 [History] Simvastatin [Zocor] 20 mg PO BEDTIME 10/14/13 [History] Triamcinolone Acetonide [Triamcinolone Acetonide 0.025%] 1 applic TOP ASDIRECTED PRN 10/14/13 [History] Warfarin [Coumadin] 5 mg PO ASDIRECTED 10/14/13 [History] Aspirin [Adult Low Dose Aspirin EC] 81 mg PO DAILY 12/06/13 [History] Insulin Aspart [NovoLOG] 16 unit SQ CALDERON 03/30/14 [History] Insulin Aspart [NovoLOG] 32 unit SQ QPM 03/30/14 [History] Acetaminophen 650 mg PO Q4H PRN 03/31/14 [History] Fluticasone Propionate [Flovent] 1 puff ABHISHEK DAILY 03/31/14 [History] Loratadine [Allergy] 10 mg PO DAILY 03/31/14 [History] Potassium Chloride [Klor-Con M20] 20 meq PO DAILY 03/31/14 [History] guaiFENesin [Guaifenesin] 400 mg PO Q4H PRN 03/31/14 [History] ALPRAZolam [Xanax] 0.25 mg PO DAILY PRN 02/26/15 [History] Allopurinol [Zyloprim] 100 mg PO DAILY 02/26/15 [History] Ascorbic Acid 500 mg PO DAILY 02/26/15 [History] Mupirocin Cream [Bactroban Crm] 1 applic TOP BID PRN 02/26/15 [History] Saw Calhoun Fruit [Saw Calhoun] 450 mg PO BID 02/26/15 [History] Metoprolol Tartrate [Lopressor] 12.5 mg PO BID 03/31/17 [History] Acetaminophen/Diphenhydramine [Tylenol Pm Ex-Strength Caplet] 1 - 2 each PO BEDTIME PRN 04/29/17 [History] Cyanocobalamin (Vitamin B-12) [B-12] 1,000 mcg PO DAILY 04/29/17 [History] Docusate Calcium [Surfak] 240 mg PO DAILY 04/29/17 [History] Fluocinonide [Lidex 0.05% Crm] 1 g TOP BID 04/29/17 [History] Folic Acid 1 mg PO DAILY 04/29/17 [History] Hypromellose [GenTeal Severe Dry Eye Relief] 1 drop EYERT DAILY 04/29/17 [ History] Ketoconazole [Nizoral 2% Crm] 1 g TOP BID PRN 04/29/17 [History] Lactulose 20 gm PO DAILY 04/29/17 [History] Magnesium Hydroxide [Milk of Magnesia] 30 ml PO DAILY PRN 04/29/17 [History] Triamcinolone Acetonide [Nasacort] 2 sprays NS DAILY 04/29/17 [History] ALPRAZolam [Xanax] 0.25 mg PO DAILY PRN #30 tablet 05/03/17 [Rx] Docusate Sodium/Sennosides [Senna Plus] 1 tab PO BID #60 tablet 05/03/17 [Rx] Ferrous Sulfate 325 mg PO BIDMEALS #60 tablet 05/03/17 [Rx] Warfarin [Coumadin] 2.5 mg PO ASDIRECTED #30 05/03/17 [Rx] Patient Handouts: Blood Transfusion, [id number], Iron tablets, capsules, extended-release tablets, Iron Deficiency Anemia, Adult Referrals: John Selby MD [Primary Care Provider] - (f/u as needed after your NH stay ) - Discharge Summary/Plan Comment DC Time >30 min.: Yes (40 - new NH d/c ) - Patient Data Vitals - Most Recent: Last Vital Signs Temp 35.7 C 05/03/17 14:59 Pulse 70 05/03/17 14:59 Resp 20 05/03/17 14:59 BP 133/39 L 05/03/17 14:59 Pulse Ox 100 05/03/17 14:59 Weight - Most Recent: 140.358 kg I&O - Last 24 hours: Intake & Output 05/03/17 05/03/17 05/03/17 06:59 14:59 22:59 Intake Total 1130 Balance 1130 Lab Results - Last 24 hrs: Laboratory Results - last 24 hr 04/29/17 05/03/17 Range/Units 14:46 06:00 Hgb 8.3 L (12.0-15.0) g/dL Crossmatch See Detail Med Orders - Current: Current Medications Acetaminophen (Tylenol) 650 mg PO Q4H PRN PRN Reason: Pain Albuterol (Proventil Neb Soln) 2.5 mg NEB Q4H PRN PRN Reason: Shortness Of Breath/wheezing Allopurinol (Zyloprim) 100 mg PO DAILY [facility] Last Admin: 05/03/17 08:33 Dose: 100 mg Alprazolam (Xanax) 0.25 mg PO DAILY PRN PRN Reason: Anxiety Last Admin: 05/02/17 23:54 Dose: 0.25 mg Artificial Tears (Natural Balance Tears) 0 ml EYERT DAILY [facility] Last Admin: 05/03/17 08:31 Dose: Not Given Aspirin (Halfprin) 81 mg PO DAILY [facility] Last Admin: 05/03/17 08:31 Dose: 81 mg Bumetanide (Bumex) 2 mg PO DAILY [facility] Last Admin: 05/03/17 08:30 Dose: 2 mg Cyanocobalamin (Vitamin B12) 1,000 mcg PO DAILY [facility] Last Admin: 05/03/17 08:32 Dose: 1,000 mcg Dimethicone/Zinc Oxide (Rash Relief-Zinc Oxide [place]) 1 gm TOP ASDIRECTED PRN PRN Reason: Rash Last Admin: 05/01/17 18:10 Dose: 1 applic Ferrous Sulfate (Ferrous Sulfate) 325 mg PO BIDMEALS [facility] Last Admin: 05/03/17 08:00 Dose: 325 mg Finasteride (Proscar) 5 mg PO DAILY [facility] Last Admin: 05/03/17 08:32 Dose: 5 mg Fluticasone Propionate (Flonase) 0 gm NASBOTH DAILY [facility] Last Admin: 05/03/17 08:30 Dose: 2 sprays Folic Acid (Folic Acid) 1 mg PO DAILY [facility] Last Admin: 05/03/17 08:30 Dose: 1 mg Insulin Aspart (Novolog) 0 unit SUBCUT ASDIRECTED [facility] PRN Reason: Protocol Last Admin: 05/02/17 21:18 Dose: 6 units Insulin Aspart (Novolog) 12 unit SUBCUT TIDMEALS [facility] Last Admin: 05/03/17 12:28 Dose: 12 units Insulin Detemir (Levemir) 36 unit SUBCUT BEDTIME [facility] Last Admin: 05/02/17 21:16 Dose: 36 units Levothyroxine Sodium 100 mcg/ (Levothyroxine Sodium 50 mcg) 150 mcg PO ACBREAKFAST [facility] Last Admin: 05/03/17 07:30 Dose: 150 mcg Melatonin (Melatonin) 6 mg PO BEDTIME PRN PRN Reason: Insomnia Last Admin: 05/02/17 21:24 Dose: 6 mg Metoprolol Tartrate (Lopressor) 12.5 mg PO BID [facility] Last Admin: 05/03/17 08:33 Dose: 12.5 mg Ondansetron HCl (Zofran Odt) 4 mg PO Q6H PRN PRN Reason: Nausea able to take PO Saw Calhoun (Ptom) 0 each PO BID [facility] Last Admin: 05/03/17 08:32 Dose: Not Given Potassium Chloride (Klor-Con M20) 20 meq PO DAILY [facility] Last Admin: 05/03/17 08:30 Dose: 20 meq Senna/Docusate Sodium (Senna Plus) 1 tab PO BID [facility] Last Admin: 05/03/17 08:32 Dose: 1 tab Simvastatin (Zocor) 20 mg PO BEDTIME [facility] Last Admin: 05/02/17 21:24 Dose: 20 mg Warfarin Sodium (Coumadin) 2.5 mg PO DAILY@1300 [facility] Last Admin: 05/03/17 12:32 Dose: 2.5 mg Discontinued Medications Bupivacaine HCl/Epinephrine Bitart (Marcaine 0.5%/Epinephrine 1:200,000) Confirm Administered Dose 50 ml .ROUTE .STK-MED ONE Stop: 04/30/17 07:04 Lactated Ringer's (Ringers, Lactated) Confirm Administered Dose 1,000 mls @ as directed .ROUTE .STK-MED ONE Stop: 04/30/17 08:07 Insulin Aspart (Novolog) 8 unit SUBCUT TIDMEALS [facility] Last Admin: 04/30/17 09:50 Dose: 8 units Insulin Detemir (Levemir) 20 unit SUBCUT BEDTIME [facility] Last Admin: 04/29/17 21:24 Dose: 20 units Insulin Detemir (Levemir) 20 unit SUBCUT BEDTIME [facility] Polyethylene Glycol (Miralax) 238 gm PO ONETIME ONE Stop: 04/29/17 15:01 Last Admin: 04/29/17 16:40 Dose: 238 gm Propofol (Diprivan 20 Ml) Confirm Administered Dose 200 mg .ROUTE .STK-MED ONE Stop: 04/30/17 07:06 Propofol (Diprivan 20 Ml) Confirm Administered Dose 200 mg .ROUTE .STK-MED ONE Stop: 04/30/17 08:07 Sodium Chloride (Saline Flush) 10 ml FLUSH ASDIRECTED PRN PRN Reason: Keep Vein Open *Q Meaningful Use (DIS) - VTE *Q VTE Criteria *Q: VTE Mechanical Contraindications *Q: Bilateral Lower Edema VTE Pharmacological Contraindications *Q: Risk of Bleeding - Stroke *Q Stroke Criteria *Q: - AMI *Q AMI Criteria *Q:
[2017-05-03] MEDS: Insulin Detemir 100 Units/ML 3 ML Pen SUBCUT SCH (21:38)
[2017-05-03] MEDS: Simvastatin 20 MG Tab PO SCH (21:42)
[2017-05-03] MEDS: Melatonin 3 MG Tab PO PRN (22:35)
[2017-05-04] MEDS: Ferrous Sulfate 325 MG Tab PO SCH (07:59)
[2017-05-04] MEDS: Fluticasone Propionate Nasal Spray 16 GM Bottle NASBOTH SCH (08:00)
[2017-05-04] MEDS: Bumetanide 1 MG Tab PO SCH (08:00)
[2017-05-04] MEDS: Metoprolol Tartrate 25 MG Tab PO SCH (08:01)
[2017-05-04] MEDS: Potassium Chloride 20 MEQ Tab.ER PO SCH (08:01)
[2017-05-04] MEDS: Aspirin 81 MG Tab.EC PO SCH (08:01)
[2017-05-04] MEDS: Folic Acid 1 MG Tab PO SCH (08:01)
[2017-05-04] MEDS: Allopurinol 100 MG Tab PO SCH (08:02)
[2017-05-04] MEDS: Hypromellose 0.4% Ophth Soln 15 ML Bottle EYERT SCH (08:02)
[2017-05-04] MEDS: SAW PALMETTO (PTOM) PO SCH (08:02)
[2017-05-04] MEDS: Finasteride 5 MG Tab PO SCH (08:02)
[2017-05-04] MEDS: Cyanocobalamin (Vitamin B12) 1,000 MCG Tab PO SCH (08:02)
[2017-05-04] MEDS: Insulin Aspart 100 Units/ML 3 ML Pen SUBCUT SCH ×2 (08:04→08:06)
== END 2017-05-04 11:00 | DRG 812 ==
LOC: JP.2SS 12:43
PROVIDERS: ADMIT Internal Medicine; ATTEND Internal Medicine
PROC: 0DJ08ZZ Inspection of Upper Intestinal Tract, Via Natural or Artificial Opening Endoscopic (ICD-10-PCS; principal; 2017-04-30)
PROC: 0DJD8ZZ Inspection of Lower Intestinal Tract, Via Natural or Artificial Opening Endoscopic (ICD-10-PCS; 2017-04-30)
PROC: 30233N1 Transfusion of Nonautologous Red Blood Cells into Peripheral Vein, Percutaneous Approach (ICD-10-PCS; 2017-04-30)
DX: D62 Acute posthemorrhagic anemia (principal); I48.92 Unspecified atrial flutter; Z68.41 Body mass index [BMI] 40.0-44.9, adult; K29.70 Gastritis, unspecified, without bleeding; K44.9 Diaphragmatic hernia without obstruction or gangrene; K57.90 Diverticulosis of intestine, part unspecified, without perforation or abscess without bleeding; I12.9 Hypertensive chronic kidney disease with stage 1 through stage 4 chronic kidney disease, or unspecified chronic kidney disease; E11.22 Type 2 diabetes mellitus with diabetic chronic kidney disease; N18.3 Chronic kidney disease, stage 3 (moderate); D63.1 Anemia in chronic kidney disease; Z87.891 Personal history of nicotine dependence; Z79.4 Long term (current) use of insulin; Z66 Do not resuscitate; E78.00 Pure hypercholesterolemia, unspecified; I25.2 Old myocardial infarction; E11.40 Type 2 diabetes mellitus with diabetic neuropathy, unspecified; I87.2 Venous insufficiency (chronic) (peripheral); E03.9 Hypothyroidism, unspecified; E66.01 Morbid (severe) obesity due to excess calories; Z79.01 Long term (current) use of anticoagulants; Z95.5 Presence of coronary angioplasty implant and graft; M19.90 Unspecified osteoarthritis, unspecified site; K59.09 Other constipation; Z95.0 Presence of cardiac pacemaker; H54.7 Unspecified visual loss; Z79.82 Long term (current) use of aspirin; Z88.8 Allergy status to other drugs, medicaments and biological substances
CPT/HCPCS: 36415; 36430; 80048; 82607; 82728; 82962; 83550; 83615; 85018; 85027; 85610; 86850; 86870; 86900; 86901; 86920; 86922; 88305; 97161-GP; 97530-GP; A9270-GY; J2704; J7120; P9016